=== PATIENT | female | born 2000 | race American Indian/Alaskan Native ===

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

== ENCOUNTER 2019-07-23 11:04 | Emergency (ER) | payer MEDICAID, OTHER ==
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
[2019-07-23] MEDS ORDERED: Sodium Chloride 0.9% 10 ML Syringe FLUSH PRN (11:06)
[2019-07-23] MEDS ORDERED: Lactated Ringers 1,000 ML IV ONE (11:08)
[2019-07-23 11:39] LABS: ANION GAP 16.9; CHLORIDE,CL 105 mmol/L (101-111); SODIUM,NA 137 mmol/L (135-145)
[2019-07-23 11:45] VITALS: BP 132/87; PULSE 115
== END 2019-07-23 15:14 | disposition home or self-care (01) ==
LOC: DL.ED 11:04
DX: T69.9XXA Effect of reduced temperature, unspecified, initial encounter (principal); F15.10 Other stimulant abuse, uncomplicated
CPT/HCPCS: 36415; 80053; 80305; 80307; 81001; 81025; 82550; 85025; 87086; 87491; 87591; 96360; 99283; J7120

== ENCOUNTER 2019-12-15 18:02 | Emergency (ER) | payer MEDICAID, OTHER ==
[2019-12-15] MEDS ORDERED: Sodium Chloride 0.9% 1,000 ML IV ONE ×2 (18:09→20:19)
[2019-12-15 18:51] LABS: ANION GAP 16.5 mEq/L (7-13); CHLORIDE,CL 106 mmol/L (98-107); SODIUM,NA 141 mmol/L (136-145)
[2019-12-15 18:53] LABS: ACETAMINOPHEN 0 ug/mL (10-30 (Therapeutic))
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
[2019-12-15] MEDS ORDERED: LORazepam 2 MG/ML SDV IVPUSH ONE (21:16)
[2019-12-15 22:47] VITALS: BP 127/74; PULSE 130
== END 2019-12-15 23:13 | disposition home or self-care (01) ==
LOC: DL.ED 18:02
DX: F15.10 Other stimulant abuse, uncomplicated (principal); Z20.828 Contact with and (suspected) exposure to other viral communicable diseases
CPT/HCPCS: 36415; 80053; 80305; 80307; 81001; 81025; 82140; 82150; 83690; 83735; 84484; 85025; 87086; 87635; 93005; 96374; 99282; 99284; J2060; J7030; U0002

== ENCOUNTER 2019-12-27 18:05 | Emergency (ER) | payer MEDICAID ==
[2019-12-27 18:23] VITALS: BP 129/80; PULSE 88
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
[2019-12-27 19:23] LABS: ANION GAP 14.1 mEq/L (7-13); CHLORIDE,CL 104 mmol/L (98-107); SODIUM,NA 140 mmol/L (136-145)
[2019-12-27] MEDS ORDERED: Nitrofurantoin Monohydrate/Macrocrystalline 100 MG Cap PO ONE (19:47)
== END 2019-12-27 20:05 | disposition home or self-care (01) ==
LOC: DL.ED 18:05
DX: U07.1 COVID-19 (principal); N39.0 Urinary tract infection, site not specified
CPT/HCPCS: 36415; 80053; 80305-QW; 81001; 81025; 82150; 85025; 87086; 99284; A9270-GY; U0002

== ENCOUNTER 2020-02-11 07:25 | Observation (INO) | payer MEDICAID, OTHER ==
[2020-02-11 07:36] VITALS: BP 125/64; PULSE 112
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
[2020-02-11 08:21] LABS: ANION GAP 13.5 mEq/L (7-13); CHLORIDE,CL 107 mmol/L (98-107); SODIUM,NA 142 mmol/L (136-145)
--- NOTE | 2020-02-11 08:26 | CT ---
PROCEDURE INFORMATION: Exam: CT Head Without Contrast Exam date and time: 02/11/2020 8:08 AM Age: 19 years old Clinical indication: Other: Seizure like activity TECHNIQUE: Imaging protocol: Computed tomography of the head without contrast. Radiation optimization: All CT scans at this facility use at least one of these dose optimization techniques: automated exposure control; mA and/or kV adjustment per patient size (includes targeted exams where dose is matched to clinical indication); or iterative reconstruction. COMPARISON: CT Head wo Cont 10/15/2018 6:42 PM FINDINGS: Brain: Normal. No hemorrhage. Unremarkable white matter. No mass effect. Cerebral ventricles: No ventriculomegaly. Bones/joints: Unremarkable. No acute fracture. Paranasal sinuses: Visualized sinuses are unremarkable. No fluid levels. Mastoid air cells: Visualized mastoid air cells are well aerated. Soft tissues: Unremarkable. IMPRESSION: No acute intracranial abnormality.
[2020-02-11] MEDS ORDERED: Sodium Chloride 0.9% 1,000 ML IV ONE (08:50)
== END 2020-02-11 10:00 | disposition left against medical advice (07) ==
LOC: DL.ED 07:25 → DL.MS 08:52
PROVIDERS: ADMIT Internal Medicine; ATTEND Internal Medicine
DX: F10.10 Alcohol abuse, uncomplicated (principal); R56.9 Unspecified convulsions; F32.9 Major depressive disorder, single episode, unspecified; Y90.0 Blood alcohol level of less than 20 mg/100 ml
CPT/HCPCS: 36415; 70450; 80053; 80305; 80307; 81001; 81025; 85025; 93005; 99285; J7030; 99284; G0378

== ENCOUNTER 2020-09-20 16:31 | Observation (INO) | payer MEDICAID ==
[2020-09-20 17:33] LABS: ANION GAP 12.6 mEq/L (7-13); CHLORIDE,CL 108 mmol/L (98-107); SODIUM,NA 143 mmol/L (136-145)
[2020-09-20] MEDS ORDERED: Lactated Ringers 1,000 ML IV ONE (17:40)
[2020-09-20] MEDS ORDERED: LORazepam 2 MG/ML SDV IVPUSH PRN (17:41)
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
[2020-09-20] MEDS: Lactated Ringers 1,000 ML IV SCH (19:01)
--- NOTE | 2020-09-20 19:16 | US ---
PROCEDURE INFORMATION: Exam: US , Limited Exam date and time: 09/20/2020 6:16 PM Age: 19 years old Clinical indication: Lmp or gestational age (in weeks): ? No care; Antepartum complications; ; Additional info: Dating, anatomy TECHNIQUE: Imaging protocol: Real-time ultrasound of the maternal uterus with image documentation. Exam focused on the clinical indication. COMPARISON: No relevant prior studies available. FINDINGS: Gestation: Single intrauterine . movement: Documented. presentation: Transverse lie heart rate: cardiac activity documented, heart rate 160 bpm. Placenta: Anterior/fundal placenta, no placenta previa. Amniotic fluid: Amniotic fluid volume upper limits of normal. Amniotic fluid index: ENEDELIA 19.9 cm. ANATOMICAL SURVEY: spine: spine poorly seen: Umbilical cord insertion site into the abdomen: Nuchal cord demonstrated. BIOMETRY: Gestational age (AUA): Measurements suggest an average ultrasound age of 28 weeks 6 days. Estimated due date (AUA): Estimated date of delivery based on average ultrasound age 0712/07/2020. Estimated weight: Estimated weight 1367g Estimated weight percentile: 53rd percentile Biparietal diameter: 7.0 cm. Head circumference: 25.8 cm. Abdominal circumference: Abdomen circumference: 26.3 cm. Femur length: 5.2 cm. MATERNAL: Uterus: The uterus is normal. Cervix: Cervix 3.3 cm. IMPRESSION: 1. Living intrauterine gestation as described. 2. Limited anatomic detail, consider follow-up studies. 3. Nuchal cord. Consider surveillance.
[2020-09-21] MEDS: Lactated Ringers 1,000 ML IV SCH ×2 (00:15→05:28)
[2020-09-21 08:00] VITALS: BP 118/54
--- NOTE | 2020-09-21 08:32 | PCM.DCSUM1 ---
Discharge Summary - Hospital Course Free Text/Narrative:: Patient is a 19 year old female at 28 weeks 6/7 days gestation based upon ultrasound on 09/20/2020 who presented to the Emergency Department following a witnessed seizure. She reports a history of epilepsy and IV methamphetamine use. She was a poor historian throughout her hospital stay. Her current involves no care. At initial presentation, she was tachycardic in the 160s and tachycardia was present in the 180s. She had drug paraphernalia in her possession. Reported last use was 4 hours prior to presentation to ED. She was given a 1 L fluid bolur. She was admitted to the hospital and started on continuous telemetry, fe sahra monitoring, and maintenance fluids. Tachycardia still present but stable in the 110s. status remains good. Required 1 mg Ativan due to agitation throughout the night. Patient voided in bed x2 throughout the night. Denied headaches, visual changes, nausea, vomiting, fevers, chills, chest pain, SOB, weakness. Ultrasound findings: - Estimated gestation age 28 weeks 6/7 days gestation - GEOFFREY 12/07/2020 - Anterior/fundal placenta - Transverse lie - Limited anatomic detail - Nuchal cord present - Est. weight 1367 g, 53% - Cervical length 3.3 cm Brief History: IUP 28 6/7 weeks gestation. IV meth use. Hx epilepsy - Discharge Data Discharge Date: 09/21/20 Discharge Disposition: Home, Self-Care 01 Condition: Good - Referral to Home Health Primary Care Physician: PCP None - Patient Summary/Data Consults: Consultations 09/20/20 18:36 Consult to Case Management/Telesales Supervisor [CONS] Routine - Patient Instructions Diet: Usual Diet as Tolerated Driving: Do Not Drive - Discharge Plan Home Medications: Home Meds . [No Known Home Meds] 07/23/19 [History] Patient Handouts: Third Trimester of , Preventing Illegal Drug Use During , Seizure, Adult, [id number] Forms: ED Department Discharge Referrals: PCP,None [Primary Care Provider] - - Discharge Summary/Plan Comment DC Time >30 min.: Yes Discharge Summary/Plan Comment: Discharge home today Abstain from using drugs including but not limited to methamphetamines, heroin, marijuana, etc. Discussed with patient how drug use can lower the seizure threshold Filed a 960 and referral made to human services Abstain from driving due to epilepsy Sent home with prescription for vitamins and daily ferrous sulfate supplement Plan to follow up in clinic with Dr. Pop on 09/28 to address care and management of epilepsy Will order a anatomic ultrasound for 09/28 - General Info Date of Service: 09/21/20 Admission Dx/Problem (Free Text: Admission Diagnosis/Problem Admission Diagnosis/Problem Post seizure activity, Hx epilepsy Acute methamphetamine intoxication Intrauterine estimated at 28 weeks 6/7 gestation based upon U/S on 09/20/2020 09/20/20 17:48 - Review of Systems General: Reports: No Symptoms HEENT: Reports: No Symptoms Pulmonary: Reports: No Symptoms Cardiovascular: Reports: No Symptoms Gastrointestinal: Reports: No Symptoms Neurological: Reports: No Symptoms - Patient Data Vitals - Most Recent: Last Vital Signs Temp 99.0 F 09/21/20 07:58 Pulse 123 H 09/21/20 07:58 Resp 16 09/21/20 07:58 BP 118/54 L 09/21/20 07:58 Pulse Ox 98 09/21/20 07:58 Weight - Most Recent: 148 lb 12.8 oz I&O - Last 24 hours: Intake & Output 09/20/20 09/21/20 09/21/20 22:59 06:59 14:59 Intake Total 1200 2360 Balance 1200 2360 Lab Results - Last 24 hrs: Laboratory Results - last 24 hr 09/20/20 09/20/20 09/20/20 Range/Units 16:46 17:04 17:04 WBC 6.9 (5.0-10.0) 10^3/uL RBC 3.81 L (4.2-5.4) 10^6/uL Hgb 10.6 L D (12.0-16.0) g/dL Hct 33.3 L (37.0-47.0) % MCV 87.4 D (80-100) fL MCH 27.8 (27.0-34.0) pg MCHC 31.8 L (33.0-35.0) g/dL Plt Count 367 D (150-450) 10^3/uL Neut % (Auto) 67.7 (42.2-75.2) % Lymph % (Auto) 17.7 L (20.5-50.1) % [place] % (Auto) 11.4 H (2-8) % Eos % (Auto) 2.9 (1.0-3.0) % Baso % (Auto) 0.3 (0.0-1.0) % Sodium 143 (136-145) mmol/L Potassium 3.6 (3.5-5.1) mmol/L Chloride 108 H (98-107) mmol/L Carbon Dioxide 26 (21-32) mmol/L Anion Gap 12.6 (7-13) mEq/L BUN 7 (7-18) mg/dL Creatinine 0.60 (0.55-1.02) mg/dL Est Cr Clr Drug Dosing 118.29 mL/min Estimated GFR (MDRD) > 60 BUN/Creatinine Ratio 11.7 (No establ ref range) Glucose 102 H (70-99) mg/dL Lactic Acid (0.4-2.0) mmol/L Calcium 8.1 L (8.5-10.1) mg/dL Phosphorus 4.1 (2.6-4.7) mg/dL Total Bilirubin 0.9 (0.2-1.0) mg/dL AST 63 H (15-37) U/L ALT 65 H (14-59) U/L Alkaline Phosphatase 139 H (46-116) U/L C-Reactive Protein < 0.2 (0.0-0.9) mg/dL Total Protein 6.2 L (6.4-8.2) g/dL Albumin 2.2 L (3.4-5.0) g/dL Globulin 4.0 Albumin/Globulin Ratio 0.55 HCG, Quant (0-6) mIU/mL Urine Color (YELLOW) Urine Appearance (CLEAR) Urine pH (5.0-9.0) Ur Specific Wilburn (1.005-1.030) Urine Protein (NEGATIVE) Urine Glucose (UA) (NEGATIVE) Urine Ketones (NEGATIVE) Urine Occult Blood (NEGATIVE) Urine Nitrite (NEGATIVE) Urine Bilirubin (NEGATIVE) Urine Urobilinogen (0.2-1.0) mg/dL Ur Leukocyte Esterase (NEGATIVE) Urine RBC /HPF Urine WBC (0-5/HPF) /HPF Ur Epithelial Cells (NOT SEEN) /HPF Amorphous Sediment (NOT SEEN) /HPF Urine Bacteria (0-FEW/HPF) /HPF Urine Mucus (NOT SEEN) /LPF Urine Opiates Screen (NEGATIVE) Ur Oxycodone Screen (NEGATIVE) Urine Methadone Screen (NEGATIVE) Ur Barbiturates Screen (NEGATIVE) U Tricyclic Antidepress (NEGATIVE) Ur Phencyclidine Scrn (NEGATIVE) Ur Amphetamine Screen (NEGATIVE) U Methamphetamines Scrn (NEGATIVE) Urine MDMA Screen (NEGATIVE) U Benzodiazepines Scrn (NEGATIVE) Urine Cocaine Screen (NEGATIVE) U Marijuana (THC) Screen (NEGATIVE) Ethyl Alcohol < 3 (0) mg/dL HIV-1 Antibody (NONREACTIVE) HIV-2 Antibody (NONREACTIVE) HIV P24 Antigen (NONREACTIVE) SARS-CoV-2 RNA (SARAH) Negative (NEGATIVE) Blood Type Gel Antibody Screen 09/20/20 09/20/20 09/20/20 Range/Units 17:04 17:04 17:04 WBC (5.0-10.0) 10^3/uL RBC (4.2-5.4) 10^6/uL Hgb (12.0-16.0) g/dL Hct (37.0-47.0) % MCV (80-100) fL MCH (27.0-34.0) pg MCHC (33.0-35.0) g/dL Plt Count (150-450) 10^3/uL Neut % (Auto) (42.2-75.2) % Lymph % (Auto) (20.5-50.1) % [place] % (Auto) (2-8) % Eos % (Auto) (1.0-3.0) % Baso % (Auto) (0.0-1.0) % Sodium (136-145) mmol/L Potassium (3.5-5.1) mmol/L Chloride (98-107) mmol/L Carbon Dioxide (21-32) mmol/L Anion Gap (7-13) mEq/L BUN (7-18) mg/dL Creatinine (0.55-1.02) mg/dL Est Cr Clr Drug Dosing mL/min Estimated GFR (MDRD) BUN/Creatinine Ratio (No establ ref range) Glucose (70-99) mg/dL Lactic Acid 1.6 (0.4-2.0) mmol/L Calcium (8.5-10.1) mg/dL Phosphorus (2.6-4.7) mg/dL Total Bilirubin (0.2-1.0) mg/dL AST (15-37) U/L ALT (14-59) U/L Alkaline Phosphatase (46-116) U/L C-Reactive Protein (0.0-0.9) mg/dL Total Protein (6.4-8.2) g/dL Albumin (3.4-5.0) g/dL Globulin Albumin/Globulin Ratio HCG, Quant 12701 H (0-6) mIU/mL Urine Color (YELLOW) Urine Appearance (CLEAR) Urine pH (5.0-9.0) Ur Specific Wilburn (1.005-1.030) Urine Protein (NEGATIVE) Urine Glucose (UA) (NEGATIVE) Urine Ketones (NEGATIVE) Urine Occult Blood (NEGATIVE) Urine Nitrite (NEGATIVE) Urine Bilirubin (NEGATIVE) Urine Urobilinogen (0.2-1.0) mg/dL Ur Leukocyte Esterase (NEGATIVE) Urine RBC /HPF Urine WBC (0-5/HPF) /HPF Ur Epithelial Cells (NOT SEEN) /HPF Amorphous Sediment (NOT SEEN) /HPF Urine Bacteria (0-FEW/HPF) /HPF Urine Mucus (NOT SEEN) /LPF Urine Opiates Screen (NEGATIVE) Ur Oxycodone Screen (NEGATIVE) Urine Methadone Screen (NEGATIVE) Ur Barbiturates Screen (NEGATIVE) U Tricyclic Antidepress (NEGATIVE) Ur Phencyclidine Scrn (NEGATIVE) Ur Amphetamine Screen (NEGATIVE) U Methamphetamines Scrn (NEGATIVE) Urine MDMA Screen (NEGATIVE) U Benzodiazepines Scrn (NEGATIVE) Urine Cocaine Screen (NEGATIVE) U Marijuana (THC) Screen (NEGATIVE) Ethyl Alcohol (0) mg/dL HIV-1 Antibody Non-reactive (NONREACTIVE) HIV-2 Antibody Non-reactive (NONREACTIVE) HIV P24 Antigen Non-reactive (NONREACTIVE) SARS-CoV-2 RNA (SARAH) (NEGATIVE) Blood Type Gel Antibody Screen 09/20/20 09/20/20 09/20/20 Range/Units 17:04 18:50 18:50 WBC (5.0-10.0) 10^3/uL RBC (4.2-5.4) 10^6/uL Hgb (12.0-16.0) g/dL Hct (37.0-47.0) % MCV (80-100) fL MCH (27.0-34.0) pg MCHC (33.0-35.0) g/dL Plt Count (150-450) 10^3/uL Neut % (Auto) (42.2-75.2) % Lymph % (Auto) (20.5-50.1) % [place]en % (Auto) (2-8) % Eos % (Auto) (1.0-3.0) % Baso % (Auto) (0.0-1.0) % Sodium (136-145) mmol/L Potassium (3.5-5.1) mmol/L Chloride (98-107) mmol/L Carbon Dioxide (21-32) mmol/L Anion Gap (7-13) mEq/L BUN (7-18) mg/dL Creatinine (0.55-1.02) mg/dL Est Cr Clr Drug Dosing mL/min Estimated GFR (MDRD) BUN/Creatinine Ratio (No establ ref range) Glucose (70-99) mg/dL Lactic Acid (0.4-2.0) mmol/L Calcium (8.5-10.1) mg/dL Phosphorus (2.6-4.7) mg/dL Total Bilirubin (0.2-1.0) mg/dL AST (15-37) U/L ALT (14-59) U/L Alkaline Phosphatase (46-116) U/L C-Reactive Protein (0.0-0.9) mg/dL Total Protein (6.4-8.2) g/dL Albumin (3.4-5.0) g/dL Globulin Albumin/Globulin Ratio HCG, Quant (0-6) mIU/mL Urine Color Dark yellow (YELLOW) Urine Appearance Turbid (CLEAR) Urine pH 7.0 (5.0-9.0) Ur Specific Wilburn 1.020 (1.005-1.030) Urine Protein Trace H (NEGATIVE) Urine Glucose (UA) Negative (NEGATIVE) Urine Ketones Negative (NEGATIVE) Urine Occult Blood Negative (NEGATIVE) Urine Nitrite Negative (NEGATIVE) Urine Bilirubin Negative (NEGATIVE) Urine Urobilinogen 4.0 H (0.2-1.0) mg/dL Ur Leukocyte Esterase Moderate H (NEGATIVE) Urine RBC 0-5 /HPF Urine WBC 20-30 H (0-5/HPF) /HPF Ur Epithelial Cells Moderate H (NOT SEEN) /HPF Amorphous Sediment Many H (NOT SEEN) /HPF Urine Bacteria Moderate H (0-FEW/HPF) /HPF Urine Mucus Rare (NOT SEEN) /LPF Urine Opiates Screen Negative (NEGATIVE) Ur Oxycodone Screen Negative (NEGATIVE) Urine Methadone Screen Negative (NEGATIVE) Ur Barbiturates Screen Negative (NEGATIVE) U Tricyclic Antidepress Negative (NEGATIVE) Ur Phencyclidine Scrn Negative (NEGATIVE) Ur Amphetamine Screen Negative (NEGATIVE) U Methamphetamines Scrn Positive H (NEGATIVE) Urine MDMA Screen Negative (NEGATIVE) U Benzodiazepines Scrn Negative (NEGATIVE) Urine Cocaine Screen Negative (NEGATIVE) U Marijuana (THC) Screen Negative (NEGATIVE) Ethyl Alcohol (0) mg/dL HIV-1 Antibody (NONREACTIVE) HIV-2 Antibody (NONREACTIVE) HIV P24 Antigen (NONREACTIVE) SARS-CoV-2 RNA (SARAH) (NEGATIVE) Blood Type O POSITIVE Gel Antibody Screen Negative CYNDI Results - Last 24 hrs: Microbiology 09/20/20 18:50 Urine Culture - Preliminary Urine, Clean Catch MIXED POSITIVE JANE DAY 1 09/20/20 18:50 Wet Prep - Final Vagina Med Orders - Current: Current Medications Lactated Ringer's (Ringers, Lactated) 1,000 mls @ 200 mls/hr IV ASDIRECTED SANDRA Last Admin: 09/21/20 05:28 Dose: 200 mls/hr Documented by: Lorazepam (Lorazepam 2 Mg/Ml Sdv) 1 mg IVPUSH ONETIME PRN PRN Reason: Seizures Last Admin: 09/20/20 21:07 Dose: 1 mg Documented by: Discontinued Medications Lactated Ringer's (Ringers, Lactated) 1,000 mls @ 999 mls/hr IV .BOLUS ONE Stop: 09/20/20 18:40 Last Admin: 09/20/20 17:15 Dose: 999 mls/hr Documented by: - Exam General: Reports: No Acute Distress, Other (Poor historian) HEENT: Reports: Pupils Equal, Pupils Reactive, EOMI, Mucous Membr. Moist/[place] Neck: Reports: Supple Lungs: Reports: Clear to Auscultation, Normal Respiratory Effort Cardiovascular: Reports: Regular Rhythm, Tachycardia GI/Abdominal Exam: Soft, Non-Tender Extremities: Normal Inspection, Normal Range of Motion, Non-Tender, No Pedal Edema, Normal Capillary Refill Skin: Reports: Warm, Dry, Intact Neurological: Reports: No New Focal Deficit (Negative for clonus)
[2020-09-21 13:30] VITALS: PULSE 121
[2020-09-22] MEDS ORDERED: Prenatal Multivitamin with Calcium/Folic Acid/Iron Tab PO SCH (08:00)
[2020-09-22 11:47] LABS: C.TRACHOMATIS BY TMA Positive (Negative); N.GONORRHOEAE BY TMA Positive (Negative)
== END 2020-09-21 13:30 | disposition home or self-care (01) ==
LOC: DL.ED 16:31 → DL.MS 17:42
PROVIDERS: ADMIT Family Medicine; ATTEND Family Medicine
DX: O99.353 Diseases of the nervous system complicating pregnancy, third trimester (principal); R56.9 Unspecified convulsions; O99.323 Drug use complicating pregnancy, third trimester; F15.129 Other stimulant abuse with intoxication, unspecified; O99.413 Diseases of the circulatory system complicating pregnancy, third trimester; R00.0 Tachycardia, unspecified; Z20.822 Contact with and (suspected) exposure to COVID-19; Z3A.28 28 weeks gestation of pregnancy
CPT/HCPCS: 36415; 76805; 80053; 80305-QW; 80307; 81001; 83605; 84100; 84702; 85025; 86140; 86592; 86762; 86803; 86850; 86900; 86901; 87077; 87081; 87086; 87088; 87186; 87210; 87340; 87389; 87491; 87591; 93005; 96374; 99284; 99285-25; J2060; J7120; U0002

== ENCOUNTER 2020-11-17 12:06 | Inpatient (IN) | payer MEDICAID ==
[2020-11-17] MEDS: Lactated Ringers 1,000 ML IV SCH ×3 (12:15→21:59)
[2020-11-17] MEDS ORDERED: Acetaminophen 325 MG Tab PO PRN (12:22)
[2020-11-17] MEDS ORDERED: Lactated Ringers 1,000 ML IV ONE (12:22)
[2020-11-17] MEDS ORDERED: Methylergonovine 0.2 MG/1 ML Amp IM PRN (12:22)
[2020-11-17] MEDS ORDERED: Sodium Chloride 0.9% 10 ML Syringe FLUSH PRN (12:22)
[2020-11-17] MEDS ORDERED: Misoprostol 400 MCG (4 X 100 MCG TAB) RECTAL PRN (12:22)
[2020-11-17] MEDS ORDERED: Tranexamic Acid 1,000 MG in Sodium Chloride 0.9% 100 ML IV PRN (12:22)
[2020-11-17] MEDS ORDERED: Penicillin G Potassium 5 MILLUNITS in Sodium Chloride 0.9% 100 ML IV ONE (12:22)
[2020-11-17] MEDS ORDERED: Lidocaine 1% 30 ML SDV INJECT PRN (12:22)
[2020-11-17] MEDS ORDERED: Carboprost Tromethamine 250 MCG/1 ML Amp IM PRN (12:22)
[2020-11-17] MEDS ORDERED: Oxytocin/Normal Saline 30 UNIT/500 ML BAG IV SCH (12:30)
[2020-11-17] MEDS ORDERED: Nalbuphine 10 MG/1 ML Vial IM ONE (12:56)
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
--- NOTE | 2020-11-17 15:32 | OBOUT ---
DATE: 11/17/2020 TIME: 12:11 to 12:31. REASON FOR NONSTRESS TEST: 1. Intrauterine at 37 and 1/7 weeks by 28 and 6/7 weeks' ultrasound. 2. Spontaneous rupture of membranes with suspected labor at 11:45 a.m. this morning. 3. GBS positive via GBS bacteria. Penicillin has to be started as soon as possible. 4. History of gonorrhea and chlamydia, treated on 10/10/2020 and negative on 11/13/2020. 5. Trichomoniasis in , treated on 11/13/2020. 6. Positive urine drug screen for methamphetamine on 09/20/2020 pending upon admission. 7. Rubella nonimmune. 8. BV, treated 10/10/2020. 9. Positive HSV type 2 vaginally, diagnosed 10/10/20, treated, did not continue on prophylactic medicines. No lesions seen with no symptoms elicited. 10.G2, P1-0-0-1. NONSTRESS TEST INTERPRETATION: During this time period, heart tone baseline is approximately 145 to 150, and at least two 15 x 15 beats per minute acceleration making this strip reactive as well as reassuring. Tocometer reveals potential 3 to 4 contractions felt by patient breathing through them. Blood pressure 124/71, heart rate 122, and temperature 98.3. ASSESSMENT: 1. Nonstress test, reactive and reassuring. 2. Tocometer with contractions. PLAN: Please see admit history and physical for further details. [facility] /[id number] [facility] CENTERFredo
[2020-11-17] MEDS: Penicillin G Potassium 3 MILLUNITS in Sodium Chloride 0.9% 100 ML IV SCH ×2 (16:38→21:19)
[2020-11-17] MEDS: Ondansetron 4 MG/2 ML SDV IVPUSH PRN ×2 (18:44→23:52)
[2020-11-17] MEDS ORDERED: EPINEPHrine 1 MG/1 ML Amp ONE ×2 (18:50→22:56)
[2020-11-17] MEDS ORDERED: fentaNYL 100 MCG/2 ML SDV ONE ×2 (18:50→22:56)
[2020-11-17] MEDS ORDERED: Sodium Bicarbonate 4.2% 2.5 MEQ/5 ML SDV ONE ×2 (18:51→22:57)
[2020-11-17] MEDS ORDERED: ePHEDrine 50 MG/ML SDV ONE (23:20)
--- NOTE | 2020-11-17 23:20 | PCM.SN.2 ---
- Free Text/Narrative Note: Intrathecal, sitting position, sterile prep and drape. 1% lidocaine w bicarb for skinwheal to L2 L3 interspace, introducer, 24 ga pencan x 1. Pos CSF, neg heme, neg parasthesia. 0.1 ml pf 1:1000 epi, 15 mcg pf sufenta, 35 mcg pf fentanyl, 0.4 ml pf ns and 6 mg of 0.75% pf marcaine injected after CSF aspiration. Pt to L lateral position. Procedure time 2300 to 2330
[2020-11-17] MEDS ORDERED: ePHEDrine 50 MG/ML SDV IVPUSH PRN (23:28)
[2020-11-18] MEDS ORDERED: Sodium Chloride 0.9% 20 ML SDV ONE ×2 (00:01→00:02)
[2020-11-18] MEDS ORDERED: Sodium Bicarbonate 4.2% 2.5 MEQ/5 ML SDV ONE ×2 (00:01→00:02)
[2020-11-18] MEDS ORDERED: fentaNYL 100 MCG/2 ML SDV ITHECAL ONE ×2 (00:01→00:02)
[2020-11-18] MEDS ORDERED: EPINEPHrine 1 MG/1 ML Amp ONE ×2 (00:01→00:02)
[2020-11-18] MEDS ORDERED: Benzocaine/Menthol 20%-0.5% Spray 78 GM Cannister TOP PRN (00:19)
[2020-11-18] MEDS ORDERED: Simethicone 80 MG Tab.Chew PO PRN (00:19)
[2020-11-18] MEDS ORDERED: Zolpidem 5 MG Tab PO PRN (00:19)
[2020-11-18] MEDS ORDERED: Oxytocin 10 Units/1 ML SDV IM PRN (00:19)
[2020-11-18] MEDS ORDERED: Measles, Mumps & Rubella Vaccine 0.5 ML SDV SUBCUT ONE (00:19)
[2020-11-18] MEDS ORDERED: Sodium Chloride 0.9% 10 ML Syringe FLUSH PRN (00:19)
[2020-11-18] MEDS ORDERED: Docusate Sodium 100 MG Cap PO PRN (00:19)
--- NOTE | 2020-11-18 01:29 | DEL ---
DATE: 11/18/2020 PREOPERATIVE DIAGNOSES: 1. Intrauterine at 37-2/7 weeks by 20-6/7-week ultrasound. 2. Spontaneous rupture of membranes at 11:45 a.m. on 11/17/2020. 3. Group B Streptococcus positive status. Multiple doses of penicillin given. 4. History of gonorrhea and chlamydia, positive and treated on 10/10/2020 with negative testing on 11/13/2020. 5. Positive bacterial vaginosis 10/10/2020 and treated and negative on 11/13/2020. 6. Herpes simplex virus type 2 vaginal lesions diagnosed 10/10/2020, with laboratory confirmed swab of ulcers, treated, and patient did not continue on prophylactic meds with no lesions seen vaginally on date of admission with evaluation and no symptoms. 7. Trichomoniasis in , treated, diagnosed on 11/13/2020. 8. Urine drug screen positive for methamphetamine 09/20/2020, and negative upon admission. 9. Rubella nonimmune. 10.Hep C antibody positive, pending is confirmatory workup. 11.G2, P1-0-0-1. 12.Anemia of with hemoglobin 10.8 upon admission. POSTOPERATIVE DIAGNOSES: 1. Intrauterine at 37-2/7 weeks by 20-6/7-week ultrasound - delivered. 2. Spontaneous rupture of membranes at 11:45 a.m. on 11/17/2020. 3. Group B Streptococcus positive status. Multiple doses of penicillin given. 4. History of gonorrhea and chlamydia, positive and treated on 10/10/2020 with negative testing on 11/13/2020. 5. Positive bacterial vaginosis 10/10/2020 and treated and negative on 11/13/2020. 6. Herpes simplex virus type 2 vaginal lesions diagnosed 10/10/2020, with laboratory confirmed swab of ulcers, treated, and patient did not continue on prophylactic meds with no lesions seen vaginally on date of admission with evaluation and no symptoms. 7. Trichomoniasis in , treated and diagnosed on 11/13/2020. 8. Urine drug screen positive for methamphetamine 09/20/2020, and negative upon admission. 9. Rubella nonimmune. 10.Hep C antibody positive, pending is confirmatory workup. 11.G2, P1-0-0-1. 12.Anemia of with hemoglobin 10.8 upon admission. PROCEDURES PERFORMED: On 11/17/2020; NST, artificial rupture of membranes, IUPC, and Pitocin augmentation, and on 11/18/2020, spontaneous vaginal delivery. Procedure performed by Santos Batres MD. ANESTHESIA/ANALGESIA: The patient did receive an intrathecal in the first stage of labor. ESTIMATED BLOOD LOSS: 200 mL. FINDINGS: Female, score and weight pending. SUMMARY OF EVENTS: The patient is a 20-year-old G2, P1-0-0-1 intrauterine at 37-1/7 weeks on date of admission (11/17/2020), admitted with spontaneous rupture of membranes at home with gross rupture of membranes at approximately 11:45 a.m. Due to GBS positive status, she was treated with penicillin as soon as possible. Evaluation of the vaginal area externally and internally revealed no evidence of HSV lesions and no symptoms to suggest so per patient. She subsequently underwent artificial rupture of membranes of forebag with IUPC placement and Pitocin augmentation, and on entry level electrician of 11/18/2020, I was called to the room as some decelerations were noted. Initial evaluation, heart tones were in the 60s. Vaginal exam revealed to be complete, at a 0 station, and with positional changes heart tone rebounded into normal range. Subsequently, the patient started pushing with contractions. vertex was delivered in NOHEMI presentation, followed by anterior and posterior shoulder as well as rest of the infant without difficulty. Mouth and nares were suctioned. Cord was doubly clamped, cut, and infant was resuscitated on mother's abdomen. Approximately 10 mL of cord blood obtained for labs. Placenta then delivered with gentle cord traction and fundal massage within 5 to 10 minutes. Perineum, vagina, perirectal areas were then examined without any tears or lacerations. Mother and are currently stable at the time of dictation. [facility] /[id number]
--- NOTE | 2020-11-18 07:21 | PN ---
DATE: 11/17/2020 SUBJECTIVE: The patient is breathing through her contractions. Notes she felt them in the lower abdomen. OBJECTIVE: heart tones 130s baseline reassuring with acceleration seen. Tocometer reveals contractions every couple minutes. Pitocin is at 4 or 5 milliunits per minute. Vaginal exam reveals her to be 3 cm, 70% effaced, 0 to - 1 station, vertex suspected, and a forebag was felt. After discussion with the patient, rupture of membranes was done over this forebag yielding clear fluid, and subsequently IUPC was placed after discussion with the patient. ASSESSMENT AND PLAN: Intrauterine at 37-1/7 weeks by 20-6/7-week ultrasound with spontaneous rupture of membranes with slow labor with rupture membranes around 11:45 with forebag as above that was ruptured with IUPC placed as above. She is also GBS positive now status post penicillin finishing her second dose. She also had trichomoniasis in , treated on 11/13/2020. Urine drug screen today is negative. She is a G2, P1-0-0-1. PLAN: We will continue Pitocin augmentation. IUPC is in place. We will calculate MVU, and follow clinically and closely at this point in time. [facility] /[id number]
--- NOTE | 2020-11-18 08:00 | PN ---
DATE: 11/17/2020 SUBJECTIVE: The patient is comfortable status post intrathecal. OBJECTIVE: heart tones in the 130s to 140s range. Two acceleration seen in the last 10 minutes. Tocometer reveals contractions every 2 to 3 minutes apart. Pitocin is at 14 milliunits per minute. Vaginal exam reveals her to be 5 cm, 85% effaced, 0 station, and vertex suspected. IUPC still in place. ASSESSMENT: Intrauterine at 37-1/7 weeks by 20-6/7 week's ultrasound with spontaneous rupture of membranes at 11:45 on date of admission, with history of multiple infections in the past. Please see previous dictations. They have been treated. No active herpes lesions seen today with evaluations, and no symptoms noted as well as GBS bacteria and now has received at least 3 doses of penicillin in 2, para 1-0-0-1. PLAN: We will continue with Pitocin augmentation. Follow maternal status closely. Pain management as needed. The patient understands and agrees with the above treatment plan. [facility] /[id number]
[2020-11-18] MEDS: Ibuprofen 800 MG Tab PO PRN ×2 (08:12→15:52)
[2020-11-18] MEDS: Prenatal Multivitamin with Calcium/Folic Acid/Iron Tab PO SCH (08:12)
[2020-11-18] MEDS: Penicillin G Potassium 3 MILLUNITS in Sodium Chloride 0.9% 100 ML IV SCH ×2 (08:13→18:44)
[2020-11-18] MEDS: Ferrous Sulfate 325 MG Tab PO SCH (08:13)
[2020-11-19] MEDS: Ibuprofen 800 MG Tab PO PRN ×2 (00:55→09:10)
[2020-11-19] MEDS: Ferrous Sulfate 325 MG Tab PO SCH (09:10)
[2020-11-19] MEDS: Prenatal Multivitamin with Calcium/Folic Acid/Iron Tab PO SCH (09:10)
[2020-11-19 10:00] VITALS: BP 134/72; PULSE 101
[2020-11-19] MEDS ORDERED: Measles, Mumps & Rubella Vaccine 0.5 ML SDV SUBCUT ONE (10:30)
--- NOTE | 2020-11-20 09:02 | DISCH ---
ADMITTING DIAGNOSES: 1. Intrauterine at 37 and 1/7 weeks by 20 and 6/7 weeks ultrasound. 2. Spontaneous rupture of membranes at 11:45 a.m. on date of admission. 3. GBS positive - antibiotics given. 4. History of gonorrhea and chlamydia on 10/10/2020, treated and then negative on 11/13/2020. 5. Positive BV, treated on 10/10/2020 and negative on 11/13/2020. 6. Herpes simplex virus type 2, diagnosed on 10/11/2019 and treated, and no lesions noted vaginally internally or externally on date of admission and through labor course. no symptoms as well. The patient did not continue on prophylactic meds as recommended. 7. Trichomoniasis in the - treated and diagnosed on 11/13/2020. 8. Positive urine drug screen for methamphetamine on 09/20/2020 and negative upon admission. 9. Rubella nonimmune. 10.GBS bacteriuria. 11.Hepatitis C antibody positive with confirmatory tests returning while the patient was in the hospital with genotype 1A with positive quant. 12.Anemia with hemoglobin 10.8. 13.G2, P1-0-0-1. DISCHARGE DIAGNOSES: 1. Intrauterine at 37 and 2/7 weeks by 20 and 6/7 weeks ultrasound - delivered. 2. Spontaneous rupture of membranes at 11:45 a.m. on date of admission. 3. GBS positive - antibiotics given. 4. History of gonorrhea and chlamydia on 10/10/2020, treated and then negative on 11/13/2020. 5. Positive BV, treated on 10/10/2020 and negative on 11/13/2020. 6. Herpes simplex virus type 2, diagnosed on 10/11/2019 and treated, and no lesions noted vaginally internally or externally on date of admission, and through labor course. no symptoms as well. The patient did not continue on prophylactic meds as recommended. 7. Trichomoniasis in the - treated and diagnosed on 11/13/2020. 8. Positive urine drug screen for methamphetamine on 09/20/2020 and negative upon admission. 9. Rubella nonimmune. 10.GBS bacteriuria. 11.Hepatitis C antibody positive with confirmatory tests returning while the patient was in the hospital with genotype 1A with positive quant. 12.Anemia with hemoglobin 10.8. 13.G2, P1-0-0-1. PROCEDURES PERFORMED: NST, artificial rupture of membranes, IUPC, and Pitocin augmentation on 11/17/2020, and spontaneous vaginal delivery on 11/18/2020 shortly after midnight per Dr[address] Batres. HISTORY OF PRESENT ILLNESS: Please see H and P. SUMMARY OF HOSPITAL COURSE: The patient was admitted on the above date with above diagnoses, underwent careful evaluation vaginally and extensive evaluation to look for any herpes-type lesions and none were noted. The patient denies any symptoms of herpes. She had a history of herpes as above and treated, but did not continue on prophylactic treatment. She underwent GBS positive prophylactic treatment with penicillin. She underwent the above procedures, then went on to have a spontaneous vaginal delivery shortly after midnight on 11/18/2020 yielding a female with 7 and 9, weighing 3435 g. Please see delivery note for further details. day #1, date of discharge, the patient was tolerating p.o., was ambulating, urinating, passing flatus, requesting discharge. PHYSICAL EXAMINATION: Vital Signs: Last set of vitals, temperature 98.5, heart rate 101, blood pressure 134/72, respiratory rate 18. Lungs: Clear to auscultation bilaterally. Heart: S1, S2. Regular rate and rhythm. Abdomen: Firm uterus. -1 below umbilicus. Extremities: No peripheral edema. No calf pain. LABORATORY DATA: Done on 11/18/2020, hemoglobin stable at 10.4 compared to predelivery hemoglobin 10.8. CONDITION ON DISCHARGE COMPARED TO CONDITION ON ADMISSION: Improved. DISCHARGE INSTRUCTIONS: 1. Diet as tolerated. 2. Activity: No lifting more than 20 pounds. No sit-ups or straining. Pelvic rest for the next 6 weeks with immediate return to fertility discussed with the patient. 3. Reason to return or go to the emergency room were discussed with the patient in detail including, but not limited to temperature greater than 100.4, foul-smelling discharge, red or tender breasts, or increased vaginal bleeding. DISCHARGE MEDICATIONS: 1. [id number] Tylenol or ibuprofen for pain. 2. vitamins x6 weeks. FOLLOWUP: 6 weeks and we will follow up with baby on 11/22/2020, and Testing Manager was involved and the patient will be going home to live with her parents and they are going to help with care of the baby. Discussed with the patient in the interim reasons to return or go to the emergency room in regard to her baby especially in light of history of herpes in the third trimester. No lesions were seen with delivery, but did discuss with the patient if baby has any signs or symptoms of herpes lesions or fever, lethargy, poor feeding or worsening jaundice, to return immediately and to go to the emergency room. The patient understands and agrees with the above treatment plan. Please see discharge paperwork for further details. [facility] /[id number] MTDD
== END 2020-11-19 15:20 | disposition home or self-care (01) | DRG 806 ==
LOC: DL.OB 12:09 → OBSVTOIN 11-18 00:09 → DL.MS 11-18 07:02
PROVIDERS: ADMIT Family Medicine; ATTEND Family Medicine
PROC: 10E0XZZ Delivery of Products of Conception, External Approach (ICD-10-PCS; principal; 2020-11-18)
PROC: 10907ZC Drainage of Amniotic Fluid, Therapeutic from Products of Conception, Via Natural or Artificial Opening (ICD-10-PCS; 2020-11-18)
PROC: 10H07YZ Insertion of Other Device into Products of Conception, Via Natural or Artificial Opening (ICD-10-PCS; 2020-11-18)
PROC: 3E0R3BZ Introduction of Anesthetic Agent into Spinal Canal, Percutaneous Approach (ICD-10-PCS; 2020-11-18)
PROC: 00HU33Z Insertion of Infusion Device into Spinal Canal, Percutaneous Approach (ICD-10-PCS; 2020-11-18)
DX: O99.824 Streptococcus B carrier state complicating childbirth (principal); O98.32 Other infections with a predominantly sexual mode of transmission complicating childbirth; Z37.0 Single live birth; O99.02 Anemia complicating childbirth; A60.09 Herpesviral infection of other urogenital tract; D64.9 Anemia, unspecified; Z20.822 Contact with and (suspected) exposure to COVID-19; Z3A.37 37 weeks gestation of pregnancy
CPT/HCPCS: 36415; 51701; 59409; 80305-QW; 85027; 90471; 90707; A9270-GY; J0171; J2300; J2405; J2540; J2590; J3010; J7120; U0002

== ENCOUNTER 2021-02-12 17:03 | Emergency (ER) | payer MEDICAID ==
[2021-02-12 17:16] LABS: BASE EXCESS ARTERIAL -2 mmol/L ((-2)-(+3)); BICARBONATE,ARTERIAL 18.8 mmol/L (22-26); O2 DELIVERY DEVICE NON REBR MASK; O2 SATURATION ARTERIAL 99 % (95-100); PCO2 ARTERIAL 23 mmHg (35-45); PO2 ARTERIAL 90 mmHg (70-100)
[2021-02-12 17:19] LABS: ALLEN TEST pos
[2021-02-12] MEDS ORDERED: Naloxone 2 MG/2 ML Syringe IVPUSH ONE (17:24)
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
[2021-02-12 17:26] VITALS: BP 138/93; PULSE 77
[2021-02-12 17:42] LABS: ANION GAP 17.8 mEq/L (7-13); CHLORIDE,CL 102 mmol/L (98-107); SODIUM,NA 138 mmol/L (136-145)
[2021-02-12 17:56] LABS: AMPHETAMINES,URINE NEGATIVE (NEGATIVE); BARBITURATES,URINE NEGATIVE (NEGATIVE); BENZODIAZEPINE,URINE NEGATIVE (NEGATIVE); MDMA (ECSTASY), URINE NEGATIVE (NEGATIVE); METHADONE,URINE NEGATIVE (NEGATIVE); METHAMPHETAMINES,URINE NEGATIVE (NEGATIVE); OPIATES,URINE NEGATIVE (NEGATIVE); OXYCODONE,URINE POSITIVE (NEGATIVE); PHENCYCLIDINE,URINE NEGATIVE (NEGATIVE); TCA,URINE NEGATIVE (NEGATIVE)
[2021-02-12] MEDS ORDERED: Sodium Chloride 0.9% 1,000 ML IV ONE (18:15)
[2021-02-12] MEDS ORDERED: Ondansetron 4 MG/2 ML SDV IV ONE (18:15)
[2021-02-12] MEDS ORDERED: Iopamidol 612 MG/ML 100 ML Bottle IVPUSH ONE (19:08)
--- NOTE | 2021-02-12 20:59 | CT ---
PROCEDURE INFORMATION: Exam: CT Abdomen And Pelvis With Contrast Exam date and time: 02/12/2021 7:34 PM Age: 20 years old Clinical indication: Other: Pain; Additional info: Abdominal pain TECHNIQUE: Imaging protocol: Computed tomography of the abdomen and pelvis with contrast. Radiation optimization: All CT scans at this facility use at least one of these dose optimization techniques: automated exposure control; mA and/or kV adjustment per patient size (includes targeted exams where dose is matched to clinical indication); or iterative reconstruction. Contrast material: [id number]; Contrast volume: 75 ml; Contrast route: INTRAVENOUS (IV); COMPARISON: US OB 2 Or 3 Tri Sgl 1st Gest 09/20/2020 6:16 PM FINDINGS: Liver: Normal. No mass. Gallbladder and bile ducts: Normal. No calcified stones. No ductal dilation. Pancreas: Normal. No ductal dilation. Spleen: Borderline splenic enlargement. Adrenal glands: Normal. No mass. Kidneys and ureters: Normal. No hydronephrosis. Stomach and bowel: Unremarkable. No obstruction. No mucosal thickening. Appendix: No evidence of appendicitis. Intraperitoneal space: Unremarkable. No free air. No significant fluid collection. Vasculature: Unremarkable. No abdominal aortic aneurysm. Lymph nodes: Unremarkable. No enlarged lymph nodes. Urinary bladder: Unremarkable as visualized. Reproductive: Unremarkable as visualized. Bones/joints: Unremarkable. No acute fracture. Soft tissues: Unremarkable. IMPRESSION: No acute intra-abdominal pathology
== END 2021-02-12 21:20 ==
LOC: EEVIPCON 17:03 → DL.ED 17:03
DX: T40.604A Poisoning by unspecified narcotics, undetermined, initial encounter (principal); R74.8 Abnormal levels of other serum enzymes
CPT/HCPCS: 36415; 36600; 74177; 80053; 80074; 80305; 80307; 81001; 81025; 82375; 82803; 85025; 86140; 93005; 96374; 96375; 99285; J2310; J2405; J7030; Q9967

== ENCOUNTER 2021-03-13 01:30 | Emergency (ER) | payer MEDICAID ==
[2021-03-13 01:49] VITALS: BP 132/88; PULSE 96
[2021-03-13 01:49] LABS: AMPHETAMINES,URINE NEGATIVE (NEGATIVE); BARBITURATES,URINE NEGATIVE (NEGATIVE); BENZODIAZEPINE,URINE NEGATIVE (NEGATIVE); MDMA (ECSTASY), URINE NEGATIVE (NEGATIVE); METHADONE,URINE NEGATIVE (NEGATIVE); METHAMPHETAMINES,URINE NEGATIVE (NEGATIVE); OPIATES,URINE NEGATIVE (NEGATIVE); OXYCODONE,URINE NEGATIVE (NEGATIVE); PHENCYCLIDINE,URINE NEGATIVE (NEGATIVE); TCA,URINE NEGATIVE (NEGATIVE)
[2021-03-13] MEDS ORDERED: Aluminum Hydroxide/Magnesium Hydroxide/Simethicone Susp 30 ML Cup PO ONE (02:12)
[2021-03-13 02:38] LABS: ANION GAP 14.8 mEq/L (7-13); CHLORIDE,CL 105 mmol/L (98-107); SODIUM,NA 140 mmol/L (136-145)
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
== END 2021-03-13 03:08 | disposition home or self-care (01) ==
LOC: DL.ED 01:30
DX: F41.9 Anxiety disorder, unspecified (principal); F43.0 Acute stress reaction; R10.13 Epigastric pain
CPT/HCPCS: 36415; 80053; 80305; 82150; 84703; 85025; 99284; A9270

== ENCOUNTER 2021-08-28 20:46 | Emergency (ER) | payer MEDICAID ==
[2021-08-28 20:46] VITALS: BP 121/78; PULSE 108
[2021-08-28 20:49] LABS: AMPHETAMINES,URINE NEGATIVE (NEGATIVE); BARBITURATES,URINE NEGATIVE (NEGATIVE); BENZODIAZEPINE,URINE NEGATIVE (NEGATIVE); MDMA (ECSTASY), URINE NEGATIVE (NEGATIVE); METHADONE,URINE NEGATIVE (NEGATIVE); METHAMPHETAMINES,URINE POSITIVE (NEGATIVE); OPIATES,URINE NEGATIVE (NEGATIVE); OXYCODONE,URINE NEGATIVE (NEGATIVE); PHENCYCLIDINE,URINE NEGATIVE (NEGATIVE); TCA,URINE NEGATIVE (NEGATIVE)
[2021-08-28 20:59] LABS: ANION GAP 13.5 mEq/L (7-13); CHLORIDE,CL 105 mmol/L (98-107); SODIUM,NA 141 mmol/L (136-145)
[2021-08-28] MEDS ORDERED: cefTRIAXone 1 GM, Lidocaine 1% 2.1 ML IM ONE ×2 (21:18)
[2021-08-28] MEDS ORDERED: Acetaminophen 325 MG Tab PO ONE (21:25)
[2021-08-28] MEDS ORDERED: Azithromycin 250 MG Tab PO ONE (22:36)
[2021-09-06 13:47] LABS: C.TRACHOMATIS BY TMA Negative (Negative); N.GONORRHOEAE BY TMA Negative (Negative)
== END 2021-08-28 23:05 | disposition home or self-care (01) ==
LOC: DL.ED 20:46
DX: O23.41 Unspecified infection of urinary tract in pregnancy, first trimester (principal); N39.0 Urinary tract infection, site not specified; O99.891 Other specified diseases and conditions complicating pregnancy; R07.81 Pleurodynia; O99.321 Drug use complicating pregnancy, first trimester; F15.10 Other stimulant abuse, uncomplicated; Z3A.01 Less than 8 weeks gestation of pregnancy
CPT/HCPCS: 36415; 80053; 80305; 80307; 81001; 84703; 85025; 87086; 87491; 87563; 87591; 96372; 99283; 99284; A9270; J0696

== ENCOUNTER 2021-09-07 01:58 | Emergency (ER) | payer MEDICAID ==
[2021-09-07 02:13] VITALS: BP 126/109; PULSE 110
[2021-09-07] MEDS ORDERED: Sodium Chloride 0.9% 10 ML Syringe FLUSH PRN (03:44)
[2021-09-07] MEDS ORDERED: Sodium Chloride 0.9% 1,000 ML IV ONE (03:49)
[2021-09-07 04:23] LABS: ANION GAP 15.2 mEq/L (7-13); CHLORIDE,CL 102 mmol/L (98-107); SODIUM,NA 139 mmol/L (136-145)
[2021-09-07 05:51] LABS: BARBITURATES,URINE NEGATIVE (NEGATIVE); BENZODIAZEPINE,URINE NEGATIVE (NEGATIVE); MDMA (ECSTASY), URINE POSITIVE (NEGATIVE); METHADONE,URINE NEGATIVE (NEGATIVE); METHAMPHETAMINES,URINE POSITIVE (NEGATIVE); OPIATES,URINE NEGATIVE (NEGATIVE); TCA,URINE NEGATIVE (NEGATIVE)
[2021-09-07 05:52] LABS: AMPHETAMINES,URINE POSITIVE (NEGATIVE); OXYCODONE,URINE NEGATIVE (NEGATIVE); PHENCYCLIDINE,URINE NEGATIVE (NEGATIVE)
[2021-09-07] MEDS ORDERED: Potassium Chloride 10 MEQ Tab.ER PO ONE (07:06)
== END 2021-09-07 08:16 | disposition home or self-care (01) ==
LOC: DL.ED 01:58
DX: O20.8 Other hemorrhage in early pregnancy (principal); M62.838 Other muscle spasm; F15.10 Other stimulant abuse, uncomplicated; Z3A.12 12 weeks gestation of pregnancy
CPT/HCPCS: 36415; 76801; 80053; 80305; 80307; 81001; 83605; 83735; 84484; 84702; 85025; 85610; 86140; 87086; 93005; 99285; A9270; J3490; J7030; 76817

== ENCOUNTER 2021-09-15 23:20 | Emergency (ER) | payer MEDICAID ==
[2021-09-15 23:34] VITALS: BP 156/89; PULSE 145
[2021-09-15] MEDS ORDERED: Sodium Chloride 0.9% 10 ML Syringe FLUSH PRN (23:38)
[2021-09-16 00:15] LABS: ANION GAP 14.3 mEq/L (7-13); CHLORIDE,CL 107 mmol/L (98-107); SODIUM,NA 138 mmol/L (136-145)
[2021-09-16 00:21] LABS: AMPHETAMINES,URINE NEGATIVE (NEGATIVE); BARBITURATES,URINE NEGATIVE (NEGATIVE); BENZODIAZEPINE,URINE NEGATIVE (NEGATIVE); MDMA (ECSTASY), URINE NEGATIVE (NEGATIVE); METHADONE,URINE NEGATIVE (NEGATIVE); METHAMPHETAMINES,URINE POSITIVE (NEGATIVE); OPIATES,URINE NEGATIVE (NEGATIVE); OXYCODONE,URINE NEGATIVE (NEGATIVE); PHENCYCLIDINE,URINE NEGATIVE (NEGATIVE); TCA,URINE NEGATIVE (NEGATIVE)
[2021-09-16 00:22] LABS: PTT,PARTIAL THROMBOPLSTIN TIME 18.8 SEC (22.0-34.0)
== END 2021-09-16 04:20 | disposition home or self-care (01) ==
LOC: DL.ED 23:20
DX: O99.311 Alcohol use complicating pregnancy, first trimester (principal); O99.321 Drug use complicating pregnancy, first trimester; F15.10 Other stimulant abuse, uncomplicated; Y90.6 Blood alcohol level of 120-199 mg/100 ml; Z3A.12 12 weeks gestation of pregnancy
CPT/HCPCS: 36415; 76815; 80053; 80305-QW; 80307; 85025; 85610; 85730; 99283; 99285; J3490

== ENCOUNTER 2021-09-23 14:49 | Emergency (ER) | payer MEDICAID ==
[~2021-09-23 14:49] MED LIST: MVI, Adult with Vitamin K 10 ML, Folic Acid 1 MG, Thiamine 100 MG in Lactated Ringers 1... IV ONE
[2021-09-23 14:54] VITALS: BP 121/76; PULSE 118
[2021-09-23 15:16] LABS: ANION GAP 13.8 mEq/L (7-13); CHLORIDE,CL 107 mmol/L (98-107); SODIUM,NA 143 mmol/L (136-145)
== END 2021-09-23 16:28 | disposition home or self-care (01) ==
LOC: DL.ED 14:49
DX: O99.892 Other specified diseases and conditions complicating childbirth (principal); F10.920 Alcohol use, unspecified with intoxication, uncomplicated; Z3A.14 14 weeks gestation of pregnancy
CPT/HCPCS: 36415; 80053; 80307; 85025; 96365; 99283; 99284-25; J3411; J3490; J7120

== ENCOUNTER 2022-03-09 07:08 | Observation (INO) | payer MEDICAID ==
[2022-03-09] MEDS: Lactated Ringers 1,000 ML IV ONE (07:10)
[2022-03-09] MEDS ORDERED: Lidocaine 1% 30 ML SDV INJECT PRN (07:12)
[2022-03-09] MEDS ORDERED: Sodium Chloride 0.9% 10 ML Syringe FLUSH PRN ×2 (07:12→09:03)
[2022-03-09] MEDS ORDERED: Carboprost Tromethamine 250 MCG/1 ML Amp IM PRN (07:12)
[2022-03-09] MEDS ORDERED: Tranexamic Acid 1,000 MG in Sodium Chloride 0.9% 100 ML IV PRN (07:12)
[2022-03-09] MEDS ORDERED: Methylergonovine 0.2 MG/1 ML Amp IM PRN (07:12)
[2022-03-09] MEDS ORDERED: Acetaminophen 325 MG Tab PO PRN (07:12)
[2022-03-09] MEDS ORDERED: Misoprostol 400 MCG (4 X 100 MCG TAB) RECTAL PRN (07:12)
[2022-03-09] MEDS: Ondansetron 4 MG/2 ML SDV ONE (07:18)
[2022-03-09] MEDS ORDERED: Dexmedetomidine 200 MCG/2 ML SDV ONE (07:23)
[2022-03-09] MEDS ORDERED: Morphine PF 1 MG/ML Amp ONE (07:34)
[2022-03-09 08:00] LABS: ESTIMATED GFR 112 mL/min (>=60)
[2022-03-09] MEDS: Lactated Ringers 1,000 ML IV SCH (08:01)
[2022-03-09] MEDS: Ondansetron 4 MG/2 ML SDV IVPUSH PRN (08:01)
[2022-03-09 08:47] LABS: MDMA (ECSTASY), URINE NEGATIVE (NEGATIVE); METHADONE,URINE NEGATIVE (NEGATIVE); METHAMPHETAMINES,URINE POSITIVE (NEGATIVE); OPIATES,URINE NEGATIVE (NEGATIVE)
[2022-03-09 08:48] LABS: AMPHETAMINES,URINE POSITIVE (NEGATIVE); BARBITURATES,URINE NEGATIVE (NEGATIVE); BENZODIAZEPINE,URINE NEGATIVE (NEGATIVE); OXYCODONE,URINE NEGATIVE (NEGATIVE); PHENCYCLIDINE,URINE NEGATIVE (NEGATIVE); TCA,URINE NEGATIVE (NEGATIVE)
[2022-03-09] MEDS: Oxytocin/Normal Saline 30 UNIT/500 ML BAG IV SCH (09:00)
[2022-03-09] MEDS ORDERED: Oxytocin 10 Units/1 ML SDV IM PRN (09:03)
[2022-03-09] MEDS ORDERED: Benzocaine/Menthol 20%-0.5% Spray 78 GM Cannister TOP PRN (09:03)
[2022-03-09] MEDS ORDERED: Simethicone 80 MG Tab.Chew PO PRN (09:03)
[2022-03-09] MEDS ORDERED: Zolpidem 5 MG Tab PO PRN (09:03)
[2022-03-09] MEDS: fentaNYL 100 MCG/2 ML SDV ONE (15:44)
[2022-03-10 08:22] VITALS: BP 94/68; PULSE 48
[2022-03-10] MEDS: Ibuprofen 800 MG Tab PO PRN (09:01)
[2022-03-10] MEDS: Docusate Sodium 100 MG Cap PO PRN (09:01)
[2022-03-10] MEDS: Prenatal Multivitamin with Calcium/Folic Acid/Iron Tab PO SCH (09:01)
== END 2022-03-10 16:00 | disposition home or self-care (01) ==
LOC: DL.OB 07:08
PROVIDERS: ADMIT Family Medicine; ATTEND Family Medicine
DX: O47.1 False labor at or after 37 completed weeks of gestation (principal); Z3A.38 38 weeks gestation of pregnancy; Z79.899 Other long term (current) drug therapy; Z20.822 Contact with and (suspected) exposure to COVID-19
CPT/HCPCS: 36415; 51701; 59409; 80305; 81003; 82565; 82570; 83615; 84156; 84450; 84460; 84520; 84550; 85027; 87635; A9270; J2405; J2590; J7120; U0002

== ENCOUNTER 2022-09-06 21:38 | Emergency (ER) | payer MEDICAID ==
[2022-09-06] MEDS ORDERED: Sodium Chloride 0.9% 10 ML Syringe FLUSH PRN (21:50)
[2022-09-06] MEDS ORDERED: Sodium Chloride 0.9% 1,000 ML IV ONE (21:57)
[2022-09-06 22:09] VITALS: BP 156/72; PULSE 118
[2022-09-06 22:09] LABS: METHAMPHETAMINES,URINE POSITIVE (NEGATIVE)
[2022-09-06 22:10] LABS: AMPHETAMINES,URINE POSITIVE (NEGATIVE); BARBITURATES,URINE NEGATIVE (NEGATIVE); BENZODIAZEPINE,URINE NEGATIVE (NEGATIVE); MDMA (ECSTASY), URINE NEGATIVE (NEGATIVE); METHADONE,URINE NEGATIVE (NEGATIVE); OPIATES,URINE NEGATIVE (NEGATIVE); OXYCODONE,URINE NEGATIVE (NEGATIVE); PHENCYCLIDINE,URINE NEGATIVE (NEGATIVE); TCA,URINE NEGATIVE (NEGATIVE)
[2022-09-06 22:38] LABS: ANION GAP 12.8 mEq/L (7-13); CHLORIDE,CL 104 mmol/L (98-107); SODIUM,NA 139 mmol/L (136-145)
[2022-09-06 22:39] LABS: ESTIMATED GFR 132 mL/min (>=60)
== END 2022-09-06 23:01 | disposition home or self-care (01) ==
LOC: DL.ED 21:38
DX: O99.891 Other specified diseases and conditions complicating pregnancy (principal); R07.89 Other chest pain; Z34.90 Encounter for supervision of normal pregnancy, unspecified, unspecified trimester
CPT/HCPCS: 36415; 80053; 80305-QW; 80307; 83690; 84484; 84703; 85025; 93005; 93010; 96360; 99284; 99285-25; J3490; J7030

== ENCOUNTER 2022-12-12 13:42 | Observation (INO) | payer MEDICAID ==
[2022-12-12 14:18] LABS: HEMATOCRIT 32.6 % (37.0-47.0); HEMOGLOBIN 10.4 g/dL (12.0-16.0); MEAN CORPUSCULAR HEMOGLOBIN 27.7 pg (27.0-34.0); MEAN CORPUSCULAR HGB CONC 31.9 g/dL (33.0-35.0); MEAN CORPUSCULAR VOLUME 86.9 fL (80-100); RED BLOOD CELL COUNT 3.75 10^6/uL (4.2-5.4); WHITE BLOOD CELL COUNT,WBC 8.2 10^3/uL (5.0-10.0)
[2022-12-12 14:21] LABS: APPEARANCE,URINE CLEAR (CLEAR); BILIRUBIN,URINE SMALL (NEGATIVE); COLOR,URINE DARK YELLOW (YELLOW); GLUCOSE,URINE NEGATIVE (NEGATIVE); KETONES,URINE 15 (NEGATIVE); LEUKOCYTE ESTERASE,URINE NEGATIVE (NEGATIVE); NITRITE,URINE NEGATIVE (NEGATIVE); OCCULT BLOOD,URINE NEGATIVE (NEGATIVE); PROTEIN,URINE TRACE (NEGATIVE)
[2022-12-12 14:26] LABS: AMPHETAMINES,URINE NEGATIVE (NEGATIVE); BARBITURATES,URINE NEGATIVE (NEGATIVE); BENZODIAZEPINE,URINE NEGATIVE (NEGATIVE); MDMA (ECSTASY), URINE NEGATIVE (NEGATIVE); METHADONE,URINE NEGATIVE (NEGATIVE); METHAMPHETAMINES,URINE NEGATIVE (NEGATIVE); OPIATES,URINE NEGATIVE (NEGATIVE); OXYCODONE,URINE NEGATIVE (NEGATIVE); PHENCYCLIDINE,URINE NEGATIVE (NEGATIVE); TCA,URINE NEGATIVE (NEGATIVE)
[2022-12-12 14:32] LABS: BACTERIA,URINE FEW /HPF (0-FEW/HPF); EPITHELIAL CELLS,URINE FEW /HPF (NOT SEEN); RBC,URINE 0-5 /HPF (0-5); WBC,URINE 0-5 /HPF (0-5/HPF)
[2022-12-12] MEDS ORDERED: Lactated Ringers 1,000 ML IV ONE ×2 (14:45→15:36)
[2022-12-12] MEDS ORDERED: hydrOXYzine HCl 25 MG Tab PO ONE (17:26)
[2022-12-12] MEDS: Lactated Ringers 1,000 ML IV SCH ×2 (18:05→18:06)
[2022-12-12 21:40] LABS: A/G RATIO 0.62; ALBUMIN 2.4 g/dL (3.4-5.0); ANION GAP 14.9 mEq/L (7-13); BILIRUBIN TOTAL 1.6 mg/dL (0.2-1.0); BUN/CREATININE RATIO 21.8 (No establ ref range); CALCIUM 8.6 mg/dL (8.5-10.1); CREATININE 0.55 mg/dL (0.55-1.02); EST CRCL DRUG DOSING (CG) 125.82 mL/min; POTASSIUM,K 3.9 mmol/L (3.5-5.1); PROTEIN TOTAL,TP 6.3 g/dL (6.4-8.2)
[2022-12-13] MEDS: Lactated Ringers 1,000 ML IV SCH (02:15)
[2022-12-13] MEDS ORDERED: Ferrous Sulfate 325 MG Tab PO SCH (08:00)
[2022-12-13] MEDS ORDERED: Prenatal Multivitamin with Calcium/Folic Acid/Iron Tab PO SCH (08:00)
[2022-12-13] MEDS ORDERED: Methimazole 5 MG Tab PO ONE (13:12)
[2022-12-13 14:32] VITALS: BP 128/71; PULSE 126
[2022-12-14 10:41] LABS: C.TRACHOMATIS BY TMA Negative (Negative); N.GONORRHOEAE BY TMA Negative (Negative); SOURCE GENITAL
[2022-12-14 12:46] LABS: HBSAG SCREEN Negative (Negative)
[2022-12-17 13:47] LABS: HCV LOG10 6.316; HEPATITIS C GENOTYPE 1a; HEPATITIS C QUANTITATION 2070000 IU/mL
== END 2022-12-13 14:27 | disposition other institution (70) ==
LOC: DL.OBCHECK 13:42 → DL.OB 17:27
PROVIDERS: ADMIT Family Medicine; ATTEND Family Medicine
DX: O26.893 Other specified pregnancy related conditions, third trimester (principal); R10.30 Lower abdominal pain, unspecified; O98.413 Viral hepatitis complicating pregnancy, third trimester; B18.2 Chronic viral hepatitis C; O99.283 Endocrine, nutritional and metabolic diseases complicating pregnancy, third trimester; O25.13 Malnutrition in pregnancy, third trimester; E86.9 Volume depletion, unspecified; E05.90 Thyrotoxicosis, unspecified without thyrotoxic crisis or storm; O99.343 Other mental disorders complicating pregnancy, third trimester; F32.9 Major depressive disorder, single episode, unspecified; F41.9 Anxiety disorder, unspecified; Z86.19 Personal history of other infectious and parasitic diseases; Z79.899 Other long term (current) drug therapy; Z3A.30 30 weeks gestation of pregnancy
CPT/HCPCS: 36415; 59025; 76805; 80053; 80305; 81001; 82950; 84439; 84443; 84445; 84481; 85027; 86376; 86592; 86762; 86803; 86850; 86900; 86901; 87081; 87210; 87340; 87389; 87491; 87522; 87591; 96360; 96361; A9270; G0378; J7120

== ENCOUNTER 2022-12-22 22:35 | Inpatient (IN) | payer MEDICAID ==
[2022-12-22] MEDS: Lactated Ringers 1,000 ML IV SCH ×2 (23:05→23:35)
[2022-12-22 23:16] LABS: BASOPHILS PERCENT AUTO 0.1 % (0.0-1.0); EOSINOPHILS PERCENT AUTO 1.8 % (1.0-3.0); HEMATOCRIT 32.7 % (37.0-47.0); HEMOGLOBIN 10.5 g/dL (12.0-16.0); LYMPHOCYTES PERCENT AUTO 18.7 % (20.5-50.1); MEAN CORPUSCULAR HEMOGLOBIN 28.9 pg (27.0-34.0); MEAN CORPUSCULAR HGB CONC 32.1 g/dL (33.0-35.0); MEAN CORPUSCULAR VOLUME 90.1 fL (80-100); MONOCYTES PERCENT AUTO 7.6 % (2-8); NEUTROPHILS PERCENT AUTO 71.8 % (42.2-75.2); PLATELET COUNT,PLT 266 10^3/uL (150-450); RED BLOOD CELL COUNT 3.63 10^6/uL (4.2-5.4); WHITE BLOOD CELL COUNT,WBC 7.9 10^3/uL (5.0-10.0)
[2022-12-22] MEDS ORDERED: Carboprost Tromethamine 250 MCG/1 ML Amp IM PRN (23:17)
[2022-12-22] MEDS ORDERED: ePHEDrine 50 MG/ML SDV IVPUSH PRN (23:17)
[2022-12-22] MEDS ORDERED: Naloxone 2 MG/2 ML Syringe IVPUSH PRN (23:17)
[2022-12-22] MEDS ORDERED: Ondansetron 4 MG/2 ML SDV IVPUSH PRN (23:17)
[2022-12-22] MEDS ORDERED: Acetaminophen 325 MG Tab PO PRN (23:17)
[2022-12-22] MEDS ORDERED: Methylergonovine 0.2 MG/1 ML Amp IM PRN (23:17)
[2022-12-22] MEDS ORDERED: ceFAZolin 2 GM Vial IVPUSH ONE (23:17)
[2022-12-22] MEDS ORDERED: diphenhydrAMINE 50 MG/ML SDV IVPUSH PRN (23:17)
[2022-12-22] MEDS ORDERED: Misoprostol 400 MCG (4 X 100 MCG TAB) RECTAL PRN (23:17)
[2022-12-22] MEDS ORDERED: Acetaminophen/oxyCODONE 325-5 MG Tab PO PRN (23:17)
[2022-12-22] MEDS ORDERED: Tranexamic Acid 1,000 MG in Sodium Chloride 0.9% 100 ML IV PRN (23:17)
[2022-12-22] MEDS ORDERED: Betamethasone Acetate/Betamethasone Sod Phosphate 6 MG/1 ML MDV IM STA (23:25)
[2022-12-22] MEDS ORDERED: Betamethasone Acetate/Betamethasone Sod Phosphate 6 MG/1 ML MDV ONE (23:26)
[2022-12-22] MEDS ORDERED: Ketorolac 30 MG/ML SDV IVPUSH SCH (23:30)
[2022-12-22] MEDS ORDERED: Oxytocin/Normal Saline 30 UNIT/500 ML BAG ONE (23:35)
[2022-12-22 23:41] LABS: AMPHETAMINES,URINE NEGATIVE (NEGATIVE); BARBITURATES,URINE NEGATIVE (NEGATIVE); BENZODIAZEPINE,URINE NEGATIVE (NEGATIVE); MDMA (ECSTASY), URINE NEGATIVE (NEGATIVE); METHADONE,URINE NEGATIVE (NEGATIVE); METHAMPHETAMINES,URINE NEGATIVE (NEGATIVE); OPIATES,URINE NEGATIVE (NEGATIVE); OXYCODONE,URINE NEGATIVE (NEGATIVE); PHENCYCLIDINE,URINE NEGATIVE (NEGATIVE); TCA,URINE NEGATIVE (NEGATIVE)
[2022-12-23] MEDS ORDERED: Oxytocin/Normal Saline 30 UNIT/500 ML BAG IV SCH (02:00)
[2022-12-23] MEDS: Morphine 2 MG/ML SYRINGE IVPUSH PRN ×4 (03:30→14:45)
[2022-12-23] MEDS ORDERED: Ketorolac 30 MG/ML SDV IVPUSH PRN (04:03)
[2022-12-23] MEDS ORDERED: Ketorolac 30 MG/ML SDV IVPUSH ONE (04:15)
[2022-12-23] MEDS: Lactated Ringers 1,000 ML IV SCH ×2 (04:19→12:16)
[2022-12-23 04:37] LABS: CREATININE,URINE RAND < 13.00 mg/dL (No establ ref range); PROTEIN,URINE RANDOM < 6.0 mg/dL (0.0-11.9)
[2022-12-23 06:22] LABS: HEMATOCRIT 34.4 % (37.0-47.0); HEMOGLOBIN 11.2 g/dL (12.0-16.0); MEAN CORPUSCULAR HEMOGLOBIN 28.6 pg (27.0-34.0); MEAN CORPUSCULAR HGB CONC 32.6 g/dL (33.0-35.0); MEAN CORPUSCULAR VOLUME 87.8 fL (80-100); RED BLOOD CELL COUNT 3.92 10^6/uL (4.2-5.4); WHITE BLOOD CELL COUNT,WBC 16.6 10^3/uL (5.0-10.0)
[2022-12-23] MEDS: Simethicone 80 MG Tab.Chew PO SCH ×4 (09:06→20:52)
[2022-12-23] MEDS: Docusate Sodium 100 MG Cap PO PRN ×2 (09:07→20:52)
[2022-12-23] MEDS: Methimazole 5 MG Tab PO SCH (09:07)
[2022-12-23] MEDS: Prenatal Multivitamin with Calcium/Folic Acid/Iron Tab PO SCH (09:07)
[2022-12-23] MEDS: Ketorolac 30 MG/ML SDV IVPUSH SCH ×3 (10:53→22:51)
[2022-12-23] MEDS: Acetaminophen/oxyCODONE 325-5 MG Tab PO PRN ×2 (16:33→20:52)
[2022-12-24] MEDS: Acetaminophen/oxyCODONE 325-5 MG Tab PO PRN ×6 (01:20→22:35)
[2022-12-24] MEDS: Ibuprofen 800 MG Tab PO PRN ×2 (06:30→19:40)
[2022-12-24] MEDS: Prenatal Multivitamin with Calcium/Folic Acid/Iron Tab PO SCH (08:21)
[2022-12-24] MEDS: Docusate Sodium 100 MG Cap PO PRN ×2 (08:21→19:40)
[2022-12-24] MEDS: Methimazole 5 MG Tab PO SCH (08:21)
[2022-12-24] MEDS: Simethicone 80 MG Tab.Chew PO SCH ×5 (08:21→22:20)
[2022-12-25] MEDS: Ibuprofen 800 MG Tab PO PRN (04:00)
[2022-12-25] MEDS: Acetaminophen/oxyCODONE 325-5 MG Tab PO PRN ×2 (04:00→08:01)
[2022-12-25] MEDS: Docusate Sodium 100 MG Cap PO PRN (07:51)
[2022-12-25] MEDS: Methimazole 5 MG Tab PO SCH (07:51)
[2022-12-25 07:55] VITALS: BP 126/81; PULSE 97
[2022-12-25] MEDS: Prenatal Multivitamin with Calcium/Folic Acid/Iron Tab PO SCH (08:00)
[2022-12-25] MEDS: Simethicone 80 MG Tab.Chew PO SCH (08:00)
== END 2022-12-25 11:30 | disposition home or self-care (01) | DRG 787 ==
LOC: DL.OBCHECK 22:35 → DL.OB 23:20 → OBSVTOIN 23:45 → DL.OB 23:45
PROVIDERS: ADMIT Family Medicine; ATTEND Family Medicine
PROC: 10D00Z1 Extraction of Products of Conception, Low, Open Approach (ICD-10-PCS; principal; 2022-12-22)
PROC: 30233N1 Transfusion of Nonautologous Red Blood Cells into Peripheral Vein, Percutaneous Approach (ICD-10-PCS; 2022-12-22)
DX: O44.53 Low lying placenta with hemorrhage, third trimester (principal); D62 Acute posthemorrhagic anemia; O98.52 Other viral diseases complicating childbirth; O45.93 Premature separation of placenta, unspecified, third trimester; B00.9 Herpesviral infection, unspecified; O99.824 Streptococcus B carrier state complicating childbirth; O99.284 Endocrine, nutritional and metabolic diseases complicating childbirth; E05.90 Thyrotoxicosis, unspecified without thyrotoxic crisis or storm; O99.02 Anemia complicating childbirth; Z37.0 Single live birth; Z86.19 Personal history of other infectious and parasitic diseases; Z3A.31 31 weeks gestation of pregnancy
CPT/HCPCS: 01961; 36415; 36430; 51702; 80305-QW; 82570; 84156; 85018; 85025; 85027; 86850; 86900; 86901; 86920; 86922; A9270-GY; J0702; J1885; J2270; J2590; J7120; P9016

== ENCOUNTER 2024-02-09 01:24 | Emergency (ER) | payer SELFPAY | END 2024-02-09 02:20 | disposition home or self-care (01) | LOC: DL.ED 01:24 | DX: T74.21XA Adult sexual abuse, confirmed, initial encounter (principal); Z79.899 Other long term (current) drug therapy; Y07.9 Unspecified perpetrator of maltreatment and neglect | CPT/HCPCS: 99283; 99284 ==

== ENCOUNTER 2024-02-20 17:39 | Emergency (ER) | payer SELFPAY ==
[2024-02-20 17:58] VITALS: BP 130/93; PULSE 120
[2024-02-20 18:04] LABS: APPEARANCE,URINE CLEAR (CLEAR); BILIRUBIN,URINE NEGATIVE (NEGATIVE); COLOR,URINE YELLOW (YELLOW); GLUCOSE,URINE NEGATIVE (NEGATIVE); KETONES,URINE NEGATIVE (NEGATIVE); LEUKOCYTE ESTERASE,URINE NEGATIVE (NEGATIVE); NITRITE,URINE NEGATIVE (NEGATIVE); OCCULT BLOOD,URINE TRACE-INTACT (NEGATIVE); PROTEIN,URINE NEGATIVE (NEGATIVE); UROBILINOGEN,URINE 0.2 mg/dL (0.2-1.0)
[2024-02-20 18:09] LABS: AMPHETAMINES,URINE NEGATIVE (NEGATIVE); BARBITURATES,URINE NEGATIVE (NEGATIVE); BENZODIAZEPINE,URINE NEGATIVE (NEGATIVE); MDMA (ECSTASY), URINE NEGATIVE (NEGATIVE); METHADONE,URINE NEGATIVE (NEGATIVE); METHAMPHETAMINES,URINE NEGATIVE (NEGATIVE); OPIATES,URINE NEGATIVE (NEGATIVE); OXYCODONE,URINE NEGATIVE (NEGATIVE); PHENCYCLIDINE,URINE NEGATIVE (NEGATIVE); TCA,URINE NEGATIVE (NEGATIVE)
[2024-02-20 18:13] LABS: BACTERIA,URINE FEW /HPF (0-FEW/HPF); EPITHELIAL CELLS,URINE MODERATE /HPF (NOT SEEN); RBC,URINE 0-5 /HPF (0-5); WBC,URINE 0-5 /HPF (0-5/HPF)
== END 2024-02-20 18:00 ==
LOC: DL.ED 17:39
DX: F10.920 Alcohol use, unspecified with intoxication, uncomplicated (principal); K21.9 Gastro-esophageal reflux disease without esophagitis
CPT/HCPCS: 80305-QW; 81001; 81025; 99283

== ENCOUNTER 2024-03-23 20:30 | Emergency (ER) | payer SELFPAY ==
[2024-03-23] MEDS: Ondansetron 4 MG Tab.DIS PO ONE (20:58)
[2024-03-23 21:10] LABS: BASOPHILS PERCENT AUTO 0.4 % (0.0-1.0); EOSINOPHILS PERCENT AUTO 3.6 % (1.0-3.0); HEMATOCRIT 39.8 % (37.0-47.0); HEMOGLOBIN 12.4 g/dL (12.0-16.0); LYMPHOCYTES PERCENT AUTO 26.5 % (20.5-50.1); MEAN CORPUSCULAR HEMOGLOBIN 29.1 pg (27.0-34.0); MEAN CORPUSCULAR HGB CONC 31.2 g/dL (33.0-35.0); MEAN CORPUSCULAR VOLUME 93.4 fL (80-100); MONOCYTES PERCENT AUTO 10.3 % (2-8); NEUTROPHILS PERCENT AUTO 59.2 % (42.2-75.2); PLATELET COUNT,PLT 289 10^3/uL (150-450); RED BLOOD CELL COUNT 4.26 10^6/uL (4.2-5.4); WHITE BLOOD CELL COUNT,WBC 6.7 10^3/uL (5.0-10.0)
[2024-03-23 21:32] LABS: A/G RATIO 1.2; ALANINE AMINOTRANSFERASE,ALT 28 U/L (14-59); ALBUMIN 3.8 g/dL (3.4-5.0); ALKALINE PHOSPHATASE 133 U/L (46-116); ANION GAP 11.5 mEq/L (7-13); ASPARTATE AMNIOTRANSFERASE,AST 20 U/L (15-37); BILIRUBIN TOTAL 0.4 mg/dL (0.2-1.0); BLOOD UREA NITROGEN,BUN 23 mg/dL (7-18); BUN/CREATININE RATIO 29.5 (No establ ref range); CALCIUM 9.4 mg/dL (8.5-10.1); CARBON DIOXIDE,CO2 31 mmol/L (21-32); CHLORIDE,CL 106 mmol/L (98-107); CREATININE 0.78 mg/dL (0.55-1.02); GLUCOSE RANDOM 108 mg/dL (70-99); LIPASE 54 U/L (16-77); MAGNESIUM 2.2 mg/dL (1.8-2.4); POTASSIUM,K 4.5 mmol/L (3.5-5.1); PROTEIN TOTAL,TP 7.1 g/dL (6.4-8.2); SODIUM,NA 144 mmol/L (136-145)
[2024-03-23 21:35] LABS: LACTIC ACID 1.2 mmol/L (0.4-2.0)
[2024-03-23 21:36] LABS: C-REACTIVE PROTEIN < 0.50 ng/dL (<=0.50); ESTIMATED GFR 109 mL/min (>=60); ETHANOL BLOOD MEDICAL < 3 mg/dL (0)
[2024-03-23 21:41] LABS: APPEARANCE,URINE CLOUDY (CLEAR); BILIRUBIN,URINE NEGATIVE (NEGATIVE); COLOR,URINE YELLOW (YELLOW); GLUCOSE,URINE NEGATIVE (NEGATIVE); KETONES,URINE NEGATIVE (NEGATIVE); LEUKOCYTE ESTERASE,URINE TRACE (NEGATIVE); NITRITE,URINE NEGATIVE (NEGATIVE); OCCULT BLOOD,URINE NEGATIVE (NEGATIVE); PROTEIN,URINE NEGATIVE (NEGATIVE); UROBILINOGEN,URINE 0.2 mg/dL (0.2-1.0)
[2024-03-23 21:46] LABS: AMPHETAMINES,URINE NEGATIVE (NEGATIVE); BARBITURATES,URINE NEGATIVE (NEGATIVE); BENZODIAZEPINE,URINE NEGATIVE (NEGATIVE); MDMA (ECSTASY), URINE NEGATIVE (NEGATIVE); METHADONE,URINE NEGATIVE (NEGATIVE); METHAMPHETAMINES,URINE NEGATIVE (NEGATIVE); OPIATES,URINE NEGATIVE (NEGATIVE); OXYCODONE,URINE NEGATIVE (NEGATIVE); PHENCYCLIDINE,URINE NEGATIVE (NEGATIVE); TCA,URINE NEGATIVE (NEGATIVE)
[2024-03-23 21:53] LABS: AMORPHOUS SEDIMENT,URINE MANY /HPF (NOT SEEN); BACTERIA,URINE MODERATE /HPF (0-FEW/HPF); EPITHELIAL CELLS,URINE FEW /HPF (NOT SEEN); MUCUS,URINE FEW /LPF (NOT SEEN); RBC,URINE 0-5 /HPF (0-5); WBC,URINE 0-5 /HPF (0-5/HPF)
[2024-03-23] MEDS: Take Home: Ondansetron 4 MG Tab.DIS, 5 Tab Pack PO ONE (22:05)
[2024-03-23 22:08] LABS: INR 0.9 (0.9-1.2); PROTHROMBIN TIME 9.7 SEC (9.0-12.0); PTT,PARTIAL THROMBOPLSTIN TIME 24.4 SEC (22.0-34.0)
[2024-03-23 22:18] VITALS: BP 153/107; PULSE 89
== END 2024-03-23 22:13 | disposition home or self-care (01) ==
LOC: DL.ED 20:30
DX: K52.9 Noninfective gastroenteritis and colitis, unspecified (principal); R11.2 Nausea with vomiting, unspecified; Z79.899 Other long term (current) drug therapy
CPT/HCPCS: 36415; 80053; 80305; 80307; 81001; 81025; 83605; 83690; 83735; 84145; 85025; 85610; 85730; 86140; 87086; 99284; A9270; Q0162

== ENCOUNTER 2024-05-05 19:57 | Emergency (ER) | payer SELFPAY ==
[2024-05-05] MEDS ORDERED: Sodium Chloride 0.9% 10 ML Syringe FLUSH PRN (20:01)
[2024-05-05 20:11] LABS: BASOPHILS PERCENT AUTO 0.2 % (0.0-1.0); EOSINOPHILS PERCENT AUTO 2.3 % (1.0-3.0); HEMATOCRIT 43.3 % (37.0-47.0); HEMOGLOBIN 14.2 g/dL (12.0-16.0); LYMPHOCYTES PERCENT AUTO 22.1 % (20.5-50.1); MEAN CORPUSCULAR HEMOGLOBIN 29.8 pg (27.0-34.0); MEAN CORPUSCULAR HGB CONC 32.8 g/dL (33.0-35.0); MEAN CORPUSCULAR VOLUME 90.8 fL (80-100); MONOCYTES PERCENT AUTO 5.8 % (2-8); NEUTROPHILS PERCENT AUTO 69.6 % (42.2-75.2); PLATELET COUNT,PLT 262 10^3/uL (150-450); RED BLOOD CELL COUNT 4.77 10^6/uL (4.2-5.4); WHITE BLOOD CELL COUNT,WBC 9.3 10^3/uL (5.0-10.0)
[2024-05-05 20:18] LABS: APPEARANCE,URINE CLEAR (CLEAR); BILIRUBIN,URINE NEGATIVE (NEGATIVE); COLOR,URINE YELLOW (YELLOW); GLUCOSE,URINE NEGATIVE (NEGATIVE); KETONES,URINE NEGATIVE (NEGATIVE); LEUKOCYTE ESTERASE,URINE NEGATIVE (NEGATIVE); NITRITE,URINE NEGATIVE (NEGATIVE); OCCULT BLOOD,URINE TRACE-INTACT (NEGATIVE); PH,URINE 5.5 (5.0-9.0); PROTEIN,URINE NEGATIVE (NEGATIVE); UROBILINOGEN,URINE 0.2 mg/dL (0.2-1.0)
[2024-05-05 20:22] LABS: AMPHETAMINES,URINE NEGATIVE (NEGATIVE); BARBITURATES,URINE NEGATIVE (NEGATIVE); BENZODIAZEPINE,URINE NEGATIVE (NEGATIVE); MDMA (ECSTASY), URINE NEGATIVE (NEGATIVE); METHADONE,URINE NEGATIVE (NEGATIVE); METHAMPHETAMINES,URINE POSITIVE (NEGATIVE); OPIATES,URINE NEGATIVE (NEGATIVE); OXYCODONE,URINE NEGATIVE (NEGATIVE); PHENCYCLIDINE,URINE NEGATIVE (NEGATIVE); TCA,URINE NEGATIVE (NEGATIVE)
[2024-05-05 20:30] LABS: BACTERIA,URINE FEW /HPF (0-FEW/HPF); EPITHELIAL CELLS,URINE FEW /HPF (NOT SEEN); RBC,URINE 0-5 /HPF (0-5); WBC,URINE 0-5 /HPF (0-5/HPF)
[2024-05-05 20:34] LABS: ALANINE AMINOTRANSFERASE,ALT 56 U/L (14-59); ALBUMIN 4.1 g/dL (3.4-5.0); ALKALINE PHOSPHATASE 120 U/L (46-116); ANION GAP 17.7 mEq/L (7-13); ASPARTATE AMNIOTRANSFERASE,AST 36 U/L (15-37); BILIRUBIN TOTAL 0.6 mg/dL (0.2-1.0); BLOOD UREA NITROGEN,BUN 17 mg/dL (7-18); BUN/CREATININE RATIO 26.6 (No establ ref range); CALCIUM 8.8 mg/dL (8.5-10.1); CARBON DIOXIDE,CO2 22 mmol/L (21-32); CHLORIDE,CL 109 mmol/L (98-107); CREATININE 0.64 mg/dL (0.55-1.02); ETHANOL BLOOD MEDICAL 244 mg/dL (0); GLUCOSE RANDOM 102 mg/dL (70-99); MAGNESIUM 2.6 mg/dL (1.8-2.4); POTASSIUM,K 3.7 mmol/L (3.5-5.1); PROTEIN TOTAL,TP 8.1 g/dL (6.4-8.2); SODIUM,NA 145 mmol/L (136-145)
[2024-05-05 20:35] LABS: ACETAMINOPHEN 0 ug/mL (10-30 (Therapeutic)); ESTIMATED GFR 126 mL/min (>=60)
[2024-05-05 20:36] LABS: LACTIC ACID 1.4 mmol/L (0.4-2.0)
[2024-05-05] MEDS: Ondansetron 4 MG/2 ML SDV IVPUSH ONE (20:48)
[2024-05-05] MEDS: Haloperidol Lactate 5 MG/ML SDV IVPUSH ONE (20:48)
[2024-05-05] MEDS: Haloperidol Lactate 5 MG/ML SDV ONE (20:49)
[2024-05-05] MEDS: Sodium Chloride 0.9% 1,000 ML IV ONE (21:00)
[2024-05-06 09:22] VITALS: BP 99/71
[2024-05-06 10:07] VITALS: PULSE 80
== END 2024-05-06 10:09 | disposition other institution (70) ==
LOC: DL.ED 19:57
DX: F10.121 Alcohol abuse with intoxication delirium (principal); F15.10 Other stimulant abuse, uncomplicated; F29 Unspecified psychosis not due to a substance or known physiological condition; Z79.899 Other long term (current) drug therapy; Y90.8 Blood alcohol level of 240 mg/100 ml or more
CPT/HCPCS: 36415; 80053; 80143; 80179; 80305; 80307; 81001; 81025; 83605; 83735; 84145; 84484; 85025; 93005; 96361; 96374; 96375; 99285; J1630; J2405; J7030

== ENCOUNTER 2024-06-22 19:50 | Emergency (ER) | payer SELFPAY ==
[2024-06-22 20:13] LABS: APPEARANCE,URINE SLIGHTLY CLOUDY (CLEAR); BILIRUBIN,URINE NEGATIVE (NEGATIVE); COLOR,URINE YELLOW (YELLOW); GLUCOSE,URINE NEGATIVE (NEGATIVE); KETONES,URINE NEGATIVE (NEGATIVE); LEUKOCYTE ESTERASE,URINE NEGATIVE (NEGATIVE); NITRITE,URINE NEGATIVE (NEGATIVE); OCCULT BLOOD,URINE NEGATIVE (NEGATIVE); PROTEIN,URINE NEGATIVE (NEGATIVE); UROBILINOGEN,URINE 0.2 mg/dL (0.2-1.0)
[2024-06-22 20:17] LABS: AMPHETAMINES,URINE NEGATIVE (NEGATIVE); BARBITURATES,URINE NEGATIVE (NEGATIVE); BENZODIAZEPINE,URINE NEGATIVE (NEGATIVE); MDMA (ECSTASY), URINE NEGATIVE (NEGATIVE); METHADONE,URINE NEGATIVE (NEGATIVE); METHAMPHETAMINES,URINE NEGATIVE (NEGATIVE); OPIATES,URINE NEGATIVE (NEGATIVE); OXYCODONE,URINE NEGATIVE (NEGATIVE); PHENCYCLIDINE,URINE NEGATIVE (NEGATIVE); TCA,URINE NEGATIVE (NEGATIVE)
[2024-06-22 20:41] VITALS: BP 137/107; PULSE 86
[2024-06-22] MEDS: Acetaminophen 500 MG Tab PO ONE (21:47)
[2024-06-22] MEDS: Ondansetron 4 MG Tab.DIS PO ONE (21:56)
[2024-06-22] MEDS: Take Home: Ondansetron 4 MG Tab.DIS, 5 Tab Pack PO ONE (21:59)
[2024-06-24 13:43] LABS: C.TRACHOMATIS BY TMA Negative (Negative); M GENITALIUM Negative (Negative); M GENITALIUM SOURCE Urine; N.GONORRHOEAE BY TMA Negative (Negative); SOURCE Urine
== END 2024-06-22 22:02 | disposition home or self-care (01) ==
LOC: DL.ED 19:50
DX: O99.891 Other specified diseases and conditions complicating pregnancy (principal); R10.13 Epigastric pain; O21.9 Vomiting of pregnancy, unspecified; Z3A.00 Weeks of gestation of pregnancy not specified; Z79.899 Other long term (current) drug therapy
CPT/HCPCS: 36415; 80305; 81003; 81025; 84702; 87491; 87563; 87591; 99284; A9270; Q0162

== ENCOUNTER 2024-09-27 04:23 | Emergency (ER) | payer SELFPAY ==
[2024-09-27] MEDS ORDERED: Sodium Chloride 0.9% 10 ML Syringe FLUSH PRN (04:38)
[2024-09-27] MEDS: Ondansetron 4 MG Tab.DIS PO ONE (04:40)
[2024-09-27 04:54] LABS: BASOPHILS PERCENT AUTO 0.2 % (0.0-1.0); EOSINOPHILS PERCENT AUTO 1.7 % (1.0-3.0); HEMATOCRIT 34.9 % (37.0-47.0); HEMOGLOBIN 11.9 g/dL (12.0-16.0); LYMPHOCYTES PERCENT AUTO 15.2 % (20.5-50.1); MEAN CORPUSCULAR HEMOGLOBIN 30.1 pg (27.0-34.0); MEAN CORPUSCULAR HGB CONC 34.1 g/dL (33.0-35.0); MEAN CORPUSCULAR VOLUME 88.4 fL (80-100); MONOCYTES PERCENT AUTO 6.8 % (2-8); NEUTROPHILS PERCENT AUTO 76.1 % (42.2-75.2); PLATELET COUNT,PLT 294 10^3/uL (150-450); RED BLOOD CELL COUNT 3.95 10^6/uL (4.2-5.4); WHITE BLOOD CELL COUNT,WBC 11.2 10^3/uL (5.0-10.0)
[2024-09-27] MEDS: Lactated Ringers 1,000 ML IV ONE (04:59)
[2024-09-27 05:03] LABS: AMPHETAMINES,URINE NEGATIVE (NEGATIVE); BARBITURATES,URINE NEGATIVE (NEGATIVE); BENZODIAZEPINE,URINE NEGATIVE (NEGATIVE); MDMA (ECSTASY), URINE NEGATIVE (NEGATIVE); METHADONE,URINE NEGATIVE (NEGATIVE); METHAMPHETAMINES,URINE NEGATIVE (NEGATIVE); OPIATES,URINE NEGATIVE (NEGATIVE); OXYCODONE,URINE NEGATIVE (NEGATIVE); PHENCYCLIDINE,URINE NEGATIVE (NEGATIVE); TCA,URINE NEGATIVE (NEGATIVE)
[2024-09-27 05:04] LABS: APPEARANCE,URINE CLOUDY (CLEAR); BILIRUBIN,URINE NEGATIVE (NEGATIVE); COLOR,URINE YELLOW (YELLOW); GLUCOSE,URINE NEGATIVE (NEGATIVE); KETONES,URINE NEGATIVE (NEGATIVE); LEUKOCYTE ESTERASE,URINE TRACE (NEGATIVE); NITRITE,URINE NEGATIVE (NEGATIVE); OCCULT BLOOD,URINE NEGATIVE (NEGATIVE); PROTEIN,URINE TRACE (NEGATIVE); UROBILINOGEN,URINE 0.2 mg/dL (0.2-1.0)
[2024-09-27 05:11] LABS: A/G RATIO 0.79; ALANINE AMINOTRANSFERASE,ALT 18 U/L (14-59); ALBUMIN 3.1 g/dL (3.4-5.0); ALKALINE PHOSPHATASE 80 U/L (46-116); ANION GAP 12.1 mEq/L (7-13); ASPARTATE AMNIOTRANSFERASE,AST 16 U/L (15-37); BILIRUBIN TOTAL 0.5 mg/dL (0.2-1.0); BLOOD UREA NITROGEN,BUN 11 mg/dL (7-18); BUN/CREATININE RATIO 19.6 (No establ ref range); CALCIUM 8.8 mg/dL (8.5-10.1); CARBON DIOXIDE,CO2 25 mmol/L (21-32); CHLORIDE,CL 106 mmol/L (98-107); CREATININE 0.56 mg/dL (0.55-1.02); EST CRCL DRUG DOSING (CG) 121.46 mL/min; ESTIMATED GFR 130 mL/min (>=60); ETHANOL BLOOD MEDICAL < 3 mg/dL (0); GLUCOSE RANDOM 114 mg/dL (70-99); LIPASE 29 U/L (16-77); MAGNESIUM 1.9 mg/dL (1.8-2.4); POTASSIUM,K 3.1 mmol/L (3.5-5.1); SODIUM,NA 140 mmol/L (136-145)
[2024-09-27 05:24] VITALS: BP 151/104; PULSE 66
[2024-09-27 05:24] LABS: AMORPHOUS SEDIMENT,URINE MODERATE /HPF (NOT SEEN); BACTERIA,URINE MODERATE /HPF (0-FEW/HPF); EPITHELIAL CELLS,URINE MODERATE /HPF (NOT SEEN); MUCUS,URINE FEW /LPF (NOT SEEN); RBC,URINE 0-5 /HPF (0-5); WBC,URINE 0-5 /HPF (0-5/HPF)
[2024-09-27] MEDS: Potassium Chloride 10 MEQ Tab.ER PO ONE (06:34)
== END 2024-09-27 06:55 | disposition home or self-care (01) ==
LOC: DL.ED 04:23
DX: O99.891 Other specified diseases and conditions complicating pregnancy (principal); R10.13 Epigastric pain; Z87.891 Personal history of nicotine dependence; Z3A.19 19 weeks gestation of pregnancy
CPT/HCPCS: 36415; 76801; 80053; 80305; 80307; 81001; 83690; 83735; 84702; 84703; 85025; 87086; 96360; 99283; 99285; A9270; J7120

== ENCOUNTER 2025-02-07 22:27 | Inpatient (IN) | payer MEDICAID ==
[2025-02-07 23:20] LABS: PLATELET COUNT,PLT 238.0 10^3/uL (150-450); RED BLOOD CELL COUNT 4.08 10^6/uL (4.2-5.4); WHITE BLOOD CELL COUNT,WBC 7.5 10^3/uL (5.0-10.0)
[2025-02-07 23:23] LABS: APPEARANCE,URINE CLEAR (CLEAR); GLUCOSE,URINE NEGATIVE (NEGATIVE); OCCULT BLOOD,URINE NEGATIVE (NEGATIVE)
[2025-02-07 23:33] LABS: AMPHETAMINES,URINE NEGATIVE (NEGATIVE); BARBITURATES,URINE NEGATIVE (NEGATIVE); MDMA (ECSTASY), URINE NEGATIVE (NEGATIVE); METHAMPHETAMINES,URINE NEGATIVE (NEGATIVE); OPIATES,URINE NEGATIVE (NEGATIVE); OXYCODONE,URINE NEGATIVE (NEGATIVE); PHENCYCLIDINE,URINE NEGATIVE (NEGATIVE); TCA,URINE NEGATIVE (NEGATIVE)
[2025-02-07 23:34] LABS: SQUAMOUS EPITHELIAL CELLS,UR FEW /HPF (NOT SEEN)
[2025-02-07 23:36] LABS: CREATININE,URINE RAND 52.85 mg/dL (No establ ref range); PROTEIN CREATININE RATIO,URINE 244.1 mg/g (<150.0); PROTEIN,URINE RANDOM 12.9 mg/dL (0.0-11.9)
[2025-02-07 23:41] LABS: ALANINE AMINOTRANSFERASE,ALT 15.0 U/L (14-59); ASPARTATE AMNIOTRANSFERASE,AST 26.0 U/L (15-37); BLOOD UREA NITROGEN,BUN 11.0 mg/dL (7-18); CREATININE 0.65 mg/dL (0.55-1.02); EST CRCL DRUG DOSING (CG) 109.45 mL/min; LACTATE DEHYDROGENASE,LDH 174.0 U/L (81-234)
[2025-02-07 23:42] LABS: ESTIMATED GFR 125.0 mL/min (>=60)
[2025-02-08] MEDS: Lactated Ringers 1,000 ML IV SCH (00:27)
[2025-02-08] MEDS ORDERED: Oxytocin 10 Units/1 ML SDV IM PRN (00:39)
[2025-02-08] MEDS ORDERED: Sodium Chloride 0.9% 10 ML Syringe FLUSH PRN (00:39)
[2025-02-08] MEDS ORDERED: Carboprost Tromethamine 250 MCG/1 ML Amp IM PRN (00:39)
[2025-02-08] MEDS ORDERED: Oxytocin/Lactated Ringers 30 UNIT/500 ML BAG IV SCH (00:45)
[2025-02-08] MEDS ORDERED: Lactated Ringers 1,000 ML IV SCH ×2 (00:45→02:15)
[2025-02-08] MEDS ORDERED: Oxytocin/Normal Saline 30 UNIT/500 ML BAG ONE ×2 (00:50→00:52)
[2025-02-08] MEDS ORDERED: diphenhydrAMINE 50 MG/ML SDV IVPUSH PRN (02:10)
[2025-02-08] MEDS ORDERED: ePHEDrine 50 MG/ML SDV IVPUSH PRN (02:10)
[2025-02-08] MEDS ORDERED: Ondansetron 4 MG/2 ML SDV IVPUSH PRN (02:10)
[2025-02-08] MEDS: Oxytocin/Normal Saline 30 UNIT/500 ML BAG IV SCH (02:32)
[2025-02-08] MEDS: Ketorolac 30 MG/ML SDV IVPUSH SCH ×2 (08:30→22:22)
[2025-02-08] MEDS: Prenatal Multivitamin with Calcium/Folic Acid/Iron Tab PO SCH (08:31)
[2025-02-08] MEDS: Acetaminophen/oxyCODONE 325-5 MG Tab PO PRN (08:31)
[2025-02-08] MEDS: Sodium Chloride 0.9% 10 ML Syringe FLUSH SCH (08:32)
[2025-02-08 13:45] LABS: PLATELET COUNT,PLT 217.0 10^3/uL (150-450); RED BLOOD CELL COUNT 3.77 10^6/uL (4.2-5.4); WHITE BLOOD CELL COUNT,WBC 7.8 10^3/uL (5.0-10.0)
[2025-02-09 13:07] LABS: PLATELET COUNT,PLT 207.0 10^3/uL (150-450); RED BLOOD CELL COUNT 3.66 10^6/uL (4.2-5.4); WHITE BLOOD CELL COUNT,WBC 6.8 10^3/uL (5.0-10.0)
[2025-02-09 13:25] LABS: ALANINE AMINOTRANSFERASE,ALT 16.0 U/L (14-59); ASPARTATE AMNIOTRANSFERASE,AST 34.0 U/L (15-37); BLOOD UREA NITROGEN,BUN 9.0 mg/dL (7-18); CREATININE 0.56 mg/dL (0.55-1.02); EST CRCL DRUG DOSING (CG) 127.04 mL/min; LACTATE DEHYDROGENASE,LDH 222.0 U/L (81-234)
[2025-02-09 13:31] LABS: ESTIMATED GFR 130.0 mL/min (>=60)
[2025-02-09 14:09] LABS: APPEARANCE,URINE CLEAR (CLEAR); GLUCOSE,URINE NEGATIVE (NEGATIVE); OCCULT BLOOD,URINE NEGATIVE (NEGATIVE)
[2025-02-09 14:18] LABS: CREATININE,URINE RAND 30.86 mg/dL (No establ ref range); PROTEIN CREATININE RATIO,URINE 392.1 mg/g (<150.0); PROTEIN,URINE RANDOM 12.1 mg/dL (0.0-11.9)
[2025-02-09] MEDS: Ketorolac 30 MG/ML SDV IVPUSH SCH (15:45)
[2025-02-09] MEDS: Acetaminophen/oxyCODONE 325-5 MG Tab PO PRN (20:04)
[2025-02-10 07:38] VITALS: BP 141/93; PULSE 89
== END 2025-02-10 11:30 | disposition home or self-care (01) | DRG 787 ==
LOC: DL.OBCHECK 22:27 → DL.OB 02-08 00:21 → OBSVTOIN 02-08 01:44 → DL.OB 02-08 01:44
PROVIDERS: ADMIT Family Medicine; ATTEND Family Medicine
PROC: 4A1HXCZ Monitoring of Products of Conception, Cardiac Rate, External Approach (ICD-10-PCS; 2025-02-08)
PROC: 10D00Z1 Extraction of Products of Conception, Low, Open Approach (ICD-10-PCS; principal; 2025-02-08 01:00)
DX: O34.211 Maternal care for low transverse scar from previous cesarean delivery (principal); D62 Acute posthemorrhagic anemia; Z3A.38 38 weeks gestation of pregnancy; Z37.0 Single live birth; O99.284 Endocrine, nutritional and metabolic diseases complicating childbirth; E05.90 Thyrotoxicosis, unspecified without thyrotoxic crisis or storm; O90.81 Anemia of the puerperium; O14.95 Unspecified pre-eclampsia, complicating the puerperium; O89.4 Spinal and epidural anesthesia-induced headache during the puerperium
CPT/HCPCS: 36415; 51701; 59025; 80305-QW; 81001; 81003; 82565; 82570; 83615; 84156; 84450; 84460; 84520; 84550; 85027; 86850; 86900; 86901; 94010; A9270-GY; J1885; J2590; J7030; J7120

== ENCOUNTER 2025-02-11 15:59 | Emergency (ER) | payer MEDICAID ==
[2025-02-11 16:03] VITALS: BP 137/94; PULSE 90
== END 2025-02-11 16:06 | disposition home or self-care (01) ==
LOC: DL.ED 15:59
DX: O99.893 Other specified diseases and conditions complicating puerperium (principal); M54.2 Cervicalgia; Z79.899 Other long term (current) drug therapy
CPT/HCPCS: 99283; 99284

== ENCOUNTER 2025-04-12 21:32 | Emergency (ER) | payer MEDICAID ==
[2025-04-12 22:00] LABS: A/G RATIO 1.1; ALANINE AMINOTRANSFERASE,ALT 103 U/L (14-59); ASPARTATE AMNIOTRANSFERASE,AST 63 U/L (15-37); BILIRUBIN TOTAL 1.1 mg/dL (0.2-1.0); BLOOD UREA NITROGEN,BUN 12 mg/dL (7-18); CARBON DIOXIDE,CO2 22 mmol/L (21-32); CHLORIDE,CL 111 mmol/L (98-107); CREATININE 0.87 mg/dL (0.55-1.02); GLUCOSE RANDOM 115 mg/dL (70-99); POTASSIUM,K 3.5 mmol/L (3.5-5.1); PROTEIN TOTAL,TP 8.4 g/dL (6.4-8.2); SODIUM,NA 150 mmol/L (136-145)
[2025-04-12] MEDS: MVI, Adult with Vitamin K 10 ML, Folic Acid 1 MG, Thiamine 100 MG in Lactated Ringers 1... IV ONE (22:00)
[2025-04-12] MEDS: Ondansetron 4 MG/2 ML SDV IVPUSH ONE (22:00)
[2025-04-12 22:05] LABS: ESTIMATED GFR 95 mL/min (>=60); ETHANOL BLOOD MEDICAL 318 mg/dL (0)
[2025-04-13] MEDS: GI Cocktail Oral Solution 30 ML PO ONE (01:30)
[2025-04-13 02:43] VITALS: BP 109/59; PULSE 96
== END 2025-04-13 01:30 | disposition home or self-care (01) ==
LOC: DL.ED 21:32
DX: F10.929 Alcohol use, unspecified with intoxication, unspecified (principal); E87.0 Hyperosmolality and hypernatremia; R11.2 Nausea with vomiting, unspecified; Y90.8 Blood alcohol level of 240 mg/100 ml or more
CPT/HCPCS: 36415; 80053; 80307; 82140; 83735; 96365; 96375; 99284; 99284-25; J1808; J2405; J3411; J3490; J7120